=== PATIENT | male | born 1930 | race Caucasian/White ===

== ENCOUNTER 2017-12-12 14:47 | Inpatient (IN) | payer MEDICARE ==
--- NOTE | 2017-12-12 15:26 | RAD ---
PORTABLE AP CHEST: Date: 12/12/17 HISTORY: Patient transferred to [facility] secondary to CHF exacerbation. COMPARISON: None available. FINDINGS: The cardiac silhouette is enlarged. Pulmonary vasculature is within normal limits. There are mild chr onic lung changes seen. There is increased density overlying the right hilar region, which may be rel ated to similar position of structures, but overlying infiltrate or mass in this region cannot be ent irely excluded. No pleural effusion or pneumothorax is seen. Thoracic aorta is partially calcified an d tortuous. Degenerative changes are noted in the spine. IMPRESSION: 1. Increased density overlying the right hilar region, probably related to superimposition of struct ures and secondary to portable technique. However, a follow-up PA and lateral chest x-ray is recommen ded to exclude the possibility of overlying infiltrate or lesion in the right hilar region. 2. Mild chronic lung changes. POS: ALVINH
[2017-12-12] MEDS ORDERED: Furosemide 40 MG/4 ML VIAL ONE (15:51)
[2017-12-12 16:08] LABS: #Basophils 0.1 thou/uL (0.0-0.2); #Eosinphils 0.4 thou/uL (0.0-0.7); #Lymphocytes 1.5 thou/uL (1.20-3.40); #Monocytes 0.6 thou/uL (0.11-0.59); #Neutrophils 4.2 thou/uL (1.40-6.50); %Basophils 1.3 % (0.0-1.0); %Eosinophils 5.3 % (0.0-10.0); %Lymphocytes 22.4 % (21.0-51.0); %Monocytes 8.7 % (0.0-10.0); %Neutrophils 62.3 % (42.0-75.0); Hemoglobin 9.8 g/dL (14.0-18.0); Mean Corpuscular HGB CONC 33.9 g/dL (32.0-36.0); Mean Corpuscular Hemoglobin 34.5 pg (27.0-31.0); Mean Platelet Volume 8.6 fL (7.4-10.4); Platelet Count 208 thou/uL (130-400); RBC Distribution Width 14.3 % (11.5-14.5); Red Blood Cell (RBC) Count 2.84 mill/uL (4.70-6.10); White Blood Cell (WBC) Count 6.7 thou/uL (4.8-10.8)
[2017-12-12 16:12] LABS: ALT (SGPT) 13 U/L (8-55); AST (SGOT) 22 U/L (5-34); Albumin 3.5 g/dL (3.4-4.8); Alkaline Phosphatase 119 U/L (40-150); Anion Gap 13 mmol/L (10-20); BUN (Urea Nitrogen) 25 mg/dL (8.4-25.7); Bilirubin, Total 0.3 mg/dL (0.2-1.2); CK (CPK) 30 U/L (30-200); Calc. Creatinine Clearance 0 mL/min (70-130); Calcium 8.5 mg/dL (7.8-10.44); Carbon Dioxide 25 mmol/L (23-31); Chloride 96 mmol/L (98-107); Estimated GFR-MDRD 46; Globulin 3.2 g/dL (2.4-3.5); Glucose 98 mg/dL (83-110); Potassium 3.3 mmol/L (3.5-5.1); Protein, Total 6.7 g/dL (5.8-8.1); Sodium 131 mmol/L (136-145)
[2017-12-12 16:24] LABS: CKMB 1.6 ng/mL (0-6.6); Troponin I 0.102 ng/mL (< 0.028)
[2017-12-12 18:54] LABS: Troponin I 0.096 ng/mL (< 0.028)
[2017-12-12] MEDS ORDERED: Bisacodyl 5 MG TAB PO PRN (21:20)
[2017-12-12 21:29] LABS: Troponin I 0.102 ng/mL (< 0.028)
[2017-12-12] MEDS ORDERED: Furosemide 40 MG/4 ML VIAL SLOW IVP SCH ×2 (21:45→22:00)
[2017-12-12 21:47] VITALS: BMI 27.5
[2017-12-12] MEDS: Piperacillin/Tazobactam 2.25 GM in Sodium Chloride 0.9% 100 ML IVPB SCH (23:41)
--- NOTE | 2017-12-13 04:16 | HP ---
CHIEF COMPLAINT: Shortness of breath. HISTORY OF PRESENT ILLNESS: Patient is an 87-year-old male with a history of dementia, coronary julio ry disease, hypertension, and seizures who is a long-term resident who comes in to the hospital fo r worsening weight gain and shortness of breath. Patient currently is unable to provide history. Mo st of the history is from the chart. It seems that patient has been getting worse, increasing amount of confusion recently. Also, it is noted that patient broke his hip 11 weeks ago and was in the [facility] for surgery. Patient at that time also had some increased confusion and was given some diureti cs. According to the patient's family, patient has gained about 5 pounds. Patient currently denies any chest discomfort or shortness of breath, he is lying flat. PAST MEDICAL HISTORY: Dementia, hypertension, GERD, hypokalemia, seizure, UTI, vitamin D deficiency, high cholesterol, anemia, right femur fracture, insomnia, osteoporosis, and BPH. PAST SURGICAL HISTORY: He has had a right hip surgery, ablation. SOCIAL HISTORY: Patient is a former smoker; however, quit more than 10 years ago. Lives in a [facility] [place] facility. ALLERGIES: He is allergic to MELATONIN. MEDICATIONS: He takes Lasix 40 mg daily, aspirin 81 mg daily, potassium 10 mEq daily, calcium and vi tamin D 600 mg daily, atorvastatin 40 mg daily, mexiletine 200 mg q.8 hours for irregular heart rate, iron 325 daily, phenytoin 300 mg daily, carvedilol 3.125 twice a day, and vitamin D3 of 1000 units d aily. REVIEW OF SYSTEMS: All negative except for the ones mentioned above in the HPI. PHYSICAL EXAMINATION: VITAL SIGNS: Blood pressure 123/65, pulse of 74, respirations of 20, temperature of 98.3, oxygen sat uration 100% on room air. GENERAL: Patient is awake, alert, oriented to self only. HEENT: Normocephalic, atraumatic. NECK: No lymphadenopathy noted. Mucous membranes are not dry. CARDIOVASCULAR: S1, S2 present. He does have a murmur that is audible to his left sternal border an d left lower sternal border. LUNGS: Mild expiratory wheezing and mild crackles noted to the bilateral lower bases. ABDOMEN: Soft, nontender. Bowel sounds are present x2. No pain upon palpation. No hepatomegaly or splenomegaly noted. Lower extremity edema +2 noted to lower extremities. SKIN: He does have some cuts and bruises to his lower extremities. LABORATORY DATA: As the following: Urine is normal. WBCs of 6.7, hemoglobin of 9.8, hematocrit of 28.9, platelets of 208. Chemistry: Sodium of 131, potassium of 3.3, chloride of 96, BUN of 25, crea tinine of 1.47. His BNP was 2234. His troponin initially was 0.102 and then 0.096 and then 0.1002. Thyroid was normal at 1.0284. Chest x-ray indicates some hilar increased density around the hilar r egion, cannot rule out any infiltrate appears sinus. ASSESSMENT AND PLAN: Patient is a very pleasant 87-year-old male who presents to the hospital for vo lume overload. 1. Seizure exacerbation of unknown type, since there is no echo to indicate what type it was. We wi ll start patient on some IV diuretics, Lasix b.i.d. Also, we will start patient on some DuoNebs. He does have some mild wheezing, which could be possibly due to some volume overload. We will also kiran ck an echocardiogram. Patient currently denies any chest pain. He does have mild elevated troponins , which could be secondary to demand related. 2. Chronic kidney disease. Patient appears to be stable. 3. Elevated troponins. This could be secondary to demand related. Again, patient has no chest pain and also we will get an echocardiogram for further evaluation. 4. Hypokalemia. We will replace. 5. Seizure disorder. Patient normally takes phenytoin; however, the level is subtherapeutic. We wi ll continue his current dose. Continue to monitor. May need to call patient's family to get further history in regard to the patient's. Of note, we will start the patient on some Zosyn since x-ray in dicates possible infiltrates; however, patient has no leukocytosis. He did say that he did have a li ttle bit of a cough. Again, patient is not a very reliable historian and there is no family around h ere to ask further history about the patient. We will check a procalcitonin level and just cover him for the night. If the procalcitonin level is normal, may discontinue IV antibiotics. 6. Deep venous thrombosis prophylaxis. We will put the patient on subcutaneous heparin.
[2017-12-13 05:05] LABS: #Basophils 0.1 thou/uL (0.0-0.2); #Eosinphils 0.3 thou/uL (0.0-0.7); #Lymphocytes 1.8 thou/uL (1.20-3.40); #Monocytes 0.6 thou/uL (0.11-0.59); #Neutrophils 5.1 thou/uL (1.40-6.50); %Basophils 0.9 % (0.0-1.0); %Eosinophils 4.3 % (0.0-10.0); %Lymphocytes 22.9 % (21.0-51.0); %Neutrophils 64.9 % (42.0-75.0); Hemoglobin 9.6 g/dL (14.0-18.0); Mean Corpuscular HGB CONC 33.5 g/dL (32.0-36.0); Mean Corpuscular Hemoglobin 34.3 pg (27.0-31.0); Mean Platelet Volume 8.7 fL (7.4-10.4); Platelet Count 206 thou/uL (130-400); RBC Distribution Width 14.6 % (11.5-14.5); Red Blood Cell (RBC) Count 2.79 mill/uL (4.70-6.10); White Blood Cell (WBC) Count 7.8 thou/uL (4.8-10.8)
[2017-12-13 05:26] LABS: Anion Gap 12 mmol/L (10-20); BUN (Urea Nitrogen) 30 mg/dL (8.4-25.7); Calc. Creatinine Clearance 41 mL/min (70-130); Calcium 8.3 mg/dL (7.8-10.44); Carbon Dioxide 29 mmol/L (23-31); Chloride 95 mmol/L (98-107); Estimated GFR-MDRD 41; Glucose 99 mg/dL (83-110); Sodium 133 mmol/L (136-145)
[2017-12-13 05:30] LABS: Potassium 2.9 mmol/L (3.5-5.1)
[2017-12-13] MEDS: Piperacillin/Tazobactam 2.25 GM in Sodium Chloride 0.9% 100 ML IVPB SCH (05:37)
[2017-12-13] MEDS ORDERED: Potassium Chloride 20 MEQ TAB PO SCH (05:45)
[2017-12-13] MEDS: Potassium Chloride 10 MEQ in Premix Bag 1 BAG IVPB SCH ×2 (06:16→08:06)
[2017-12-13] MEDS: Acetaminophen 325 MG TAB PO PRN (07:52)
[2017-12-13] MEDS: Potassium Chloride 10 MEQ TAB PO SCH (07:52)
[2017-12-13] MEDS: Senokot S 8.6-50 MG TAB PO SCH ×2 (07:54→20:45)
[2017-12-13] MEDS: Ferrous Sulfate 325 MG TAB PO SCH (07:55)
[2017-12-13] MEDS: Carvedilol 3.125 MG TAB PO SCH ×2 (07:56→20:45)
[2017-12-13] MEDS ORDERED: Prevnar 13-Val Conj/PF 0.5 ML SYRINGE IM ONE (09:00)
[2017-12-13] MEDS ORDERED: Heparin 5,000 UNITS/ML VIAL SC SCH (09:00)
[2017-12-13] MEDS ORDERED: Mexiletine HCl 150 MG CAP PO SCH ×3 (09:00→14:00)
[2017-12-13] MEDS ORDERED: Aspirin 325 mg Enteric Coated Tablet PO SCH (09:00)
[2017-12-13] MEDS ORDERED: Cefdinir 300 MG CAP PO SCH ×2 (09:15)
[2017-12-13] MEDS: Aspirin 81 mg Enteric Coated Tablet PO SCH (09:26)
--- NOTE | 2017-12-13 10:36 | RAD ---
RIGHT WRIST 3 VIEWS: HISTORY: Fall. Right wrist injury. FINDINGS: Scaphoid waist and ulnar styloid are intact. Mild osteophytosis. No acute fracture, dislocation, or aggressive osseous erosions. IMPRESSION: Mild osteoarthritis right wrist. No acute osseous abnormalities are demonstrated. POS: ALVIN
--- NOTE | 2017-12-13 10:36 | RAD ---
RIGHT HAND 3 VIEWS: HISTORY: Fall. Right hand injury. FINDINGS: Joint spaces are preserved. Mild osteophytosis. No acute fracture, dislocation, or aggressive osseo us erosions. IMPRESSION: Mild osteoarthritis right hand. No acute osseous abnormalities are demonstrated. POS: ALVIN
[2017-12-13] MEDS ORDERED: Potassium Chloride 20 MEQ TAB PO PRN (11:47)
[2017-12-13] MEDS ORDERED: Magnesium 2 GM/NS 0.9% 100 ML 2 GM in Premix Bag 1 BAG IVPB SCH (12:00)
[2017-12-13] MEDS: Furosemide 40 MG/4 ML VIAL SLOW IVP SCH ×2 (14:29→19:46)
[2017-12-13] MEDS: MEXILETINE 200 MG CAP PO SCH ×2 (14:30→21:01)
[2017-12-13 16:25] LABS: Potassium 3.4 mmol/L (3.5-5.1)
[2017-12-13] MEDS: Doxycycline 100 MG CAP PO SCH (20:45)
[2017-12-13] MEDS: Atorvastatin Calcium 20 MG TAB PO SCH (20:45)
[2017-12-13] MEDS: Heparin 5,000 UNITS/ML VIAL SC SCH (20:46)
--- NOTE | 2017-12-13 23:13 | PDOC.PN ---
- Subjective Encounter Start Date: 12/13/17 Encounter Start Time: 08:30 Patient seen and examined for CHF flare. SOB improving. No new complaints. No overnight events. Rt wrist pain w/o swelling - Objective Resuscitation Status: Resuscitation Status DNR:Do Not Resuscitate MAR Reviewed: Yes Vital Signs & Weight: Vital Signs (12 hours) Temp Pulse Pulse Pulse Resp BP BP 12/13/17 22:14 12 12/13/17 19:30 98.5 F 81 20 12/13/17 18:48 87 74 107/59 L 114/56 L 12/13/17 18:41 82 16 12/13/17 16:30 98 F 95 14 12/13/17 14:06 76 16 12/13/17 12:00 98.5 F 75 14 BP Pulse Ox Pulse Ox 12/13/17 22:14 12/13/17 19:30 114/57 L 97 12/13/17 18:48 99 12/13/17 18:41 100 12/13/17 16:30 97/54 L 12/13/17 14:06 12/13/17 12:00 107/57 L 95 Weight Weight 191 lb 11.2 oz I&O: 12/12/17 12/13/17 12/14/17 06:59 06:59 06:59 Intake Total 460 1080 Balance 460 1080 Result Diagrams: 12/14/17 04:21 12/14/17 04:21 Additional Labs: Laboratory Tests 12/13/17 12/13/17 04:18 04:18 Potassium 2.9 L* Magnesium 1.6 Radiology Reviewed by me: Yes (CXR - ?infiltrate at R hilar region) EKG Reviewed by me: Yes (Tele SR with PVCs) Phys Exam - Physical Examination Constitutional: NAD Neck: no nodes, no JVD, supple Respiratory: no wheezing, no rhonchi Bibasilar rales, No accessory muscle use Cardiovascular: RRR, no rub no heaves/pulsations Gastrointestinal: soft, non-tender, no distention, positive bowel sounds Musculoskeletal: edema present Normal ROM Rt wrist Neurological: moves all 4 limbs No new focal findings Dx/Plan (1) Acute on chronic combined systolic and diastolic ACC/AHA stage C congestive heart failure Code(s): I50.43 - ACUTE ON CHRONIC COMBINED SYSTOLIC AND DIASTOLIC HRT FAIL Status: Acute (2) Hypokalemia Code(s): E87.6 - HYPOKALEMIA Status: Acute (3) HTN (hypertension) Code(s): I10 - ESSENTIAL (PRIMARY) HYPERTENSION Status: Acute (4) Acute bronchitis Code(s): J20.9 - ACUTE BRONCHITIS, UNSPECIFIED Status: Acute - Plan continue antibiotics, PT/OT, DVT proph w/heparin, DVT proph w/SCDs Add Doxycline, Rt wrist XR due to h/o fall -: AM labs, Recheck Potassium later today -: Replace Potassium and Mg -: Add Fluid restriction, Echo pending Review of Systems - Review of Systems Respiratory: negative: Cough, Dry, Shortness of Breath, Hemoptysis, SOB with Excertion, Pleuritic Pain, Sputum, Wheezing Cardiovascular: negative: chest pain, palpitations, orthopnea, paroxysmal nocturnal dyspnea, edema, light headedness, other - Medications/Allergies Allergies/Adverse Reactions: Allergies Allergy/AdvReac Type Severity Reaction Status Date / Time melatonin Allergy Verified 12/12/17 21:40 Medications: Current Medications Acetaminophen (Tylenol) 650 mg PO Q4H PRN PRN Reason: Headache/Fever or Pain Last Admin: 12/13/17 07:52 Dose: 650 mg Albuterol/Ipratropium (Duoneb) 3 ml NEB [id number] [facility] Last Admin: 12/13/17 22:14 Dose: 3 ml Aspirin (Ecotrin) 81 mg PO DAILY [facility] Last Admin: 12/13/17 09:26 Dose: 81 mg Atorvastatin Calcium (Lipitor) 20 mg PO HS [facility] Last Admin: 12/13/17 20:45 Dose: 20 mg Bisacodyl (Dulcolax) 10 mg PO DAILYPRN PRN PRN Reason: Constipation Carvedilol (Coreg) 3.125 mg PO BID [facility] Last Admin: 12/13/17 20:45 Dose: 3.125 mg Doxycycline Hyclate (Vibramycin) 100 mg PO BID [facility] Last Admin: 12/13/17 20:45 Dose: 100 mg Ferrous Sulfate (Feosol) 325 mg PO QAM-WM [facility] Last Admin: 12/13/17 07:55 Dose: 325 mg Furosemide (Lasix) 40 mg SLOW IVP 0600,1400 [facility] Last Admin: 12/13/17 19:46 Dose: Not Given Heparin Sodium (Porcine) (Heparin) 5,000 units SC BID [facility] Last Admin: 12/13/17 20:46 Dose: 5,000 units Mexiletine 200 Mg (Cap) 0 each PO Q8HR [facility] Last Admin: 12/13/17 21:01 Dose: 1 each Phenytoin Sodium (Dilantin Er) 300 mg PO DAILY [facility] Last Admin: 12/13/17 07:53 Dose: 300 mg Potassium Chloride (Klor-Con 10) 10 meq PO DAILY [facility] Last Admin: 12/13/17 07:52 Dose: 10 meq Potassium Chloride (K-Dur) 20 meq PO DAILYPRN PRN PRN Reason: Potassium < 3.5 Last Admin: 12/13/17 17:36 Dose: 20 meq Senna/Docusate Sodium (Senokot S) 1 tab PO BID [facility] Last Admin: 12/13/17 20:45 Dose: 1 tab Sodium Chloride (Flush - Normal Saline) 10 ml IVF PRN PRN PRN Reason: Saline Flush Last Admin: 12/13/17 14:30 Dose: 10 ml
[2017-12-14 04:57] LABS: #Basophils 0.1 thou/uL (0.0-0.2); #Eosinphils 0.4 thou/uL (0.0-0.7); #Lymphocytes 1.7 thou/uL (1.20-3.40); #Monocytes 0.4 thou/uL (0.11-0.59); #Neutrophils 3.6 thou/uL (1.40-6.50); %Lymphocytes 27.4 % (21.0-51.0); %Neutrophils 57.6 % (42.0-75.0); Hemoglobin 9.8 g/dL (14.0-18.0); Mean Corpuscular HGB CONC 33.4 g/dL (32.0-36.0); Mean Corpuscular Hemoglobin 34.3 pg (27.0-31.0); Mean Platelet Volume 9.1 fL (7.4-10.4); Platelet Count 212 thou/uL (130-400); RBC Distribution Width 14.5 % (11.5-14.5); Red Blood Cell (RBC) Count 2.84 mill/uL (4.70-6.10); White Blood Cell (WBC) Count 6.2 thou/uL (4.8-10.8)
[2017-12-14 05:25] LABS: Anion Gap 12 mmol/L (10-20); BUN (Urea Nitrogen) 31 mg/dL (8.4-25.7); Calc. Creatinine Clearance 45 mL/min (70-130); Calcium 8.6 mg/dL (7.8-10.44); Carbon Dioxide 27 mmol/L (23-31); Chloride 100 mmol/L (98-107); Estimated GFR-MDRD 46; Glucose 98 mg/dL (83-110); Phosphorus 3.4 mg/dL (2.3-4.7); Potassium 3.6 mmol/L (3.5-5.1); Sodium 135 mmol/L (136-145)
[2017-12-14] MEDS: Furosemide 40 MG/4 ML VIAL SLOW IVP SCH ×2 (06:10→15:11)
[2017-12-14] MEDS: MEXILETINE 200 MG CAP PO SCH ×3 (06:40→20:45)
[2017-12-14] MEDS: Doxycycline 100 MG CAP PO SCH ×2 (09:43→20:44)
[2017-12-14] MEDS: Senokot S 8.6-50 MG TAB PO SCH ×3 (09:43→23:02)
[2017-12-14] MEDS: Ferrous Sulfate 325 MG TAB PO SCH (09:48)
[2017-12-14] MEDS: Potassium Chloride 10 MEQ TAB PO SCH (09:48)
[2017-12-14] MEDS: Carvedilol 3.125 MG TAB PO SCH ×2 (09:48→20:46)
[2017-12-14] MEDS: Aspirin 81 mg Enteric Coated Tablet PO SCH (09:48)
[2017-12-14] MEDS: Heparin 5,000 UNITS/ML VIAL SC SCH ×2 (09:51→20:46)
--- NOTE | 2017-12-14 13:33 | PDOC.PN ---
- Subjective Encounter Start Date: 12/14/17 Encounter Start Time: 11:30 Patient seen and examined for CHF exacerbation. No new complaints. No overnight events - Objective Resuscitation Status: Resuscitation Status DNR:Do Not Resuscitate MAR Reviewed: Yes Vital Signs & Weight: Vital Signs (12 hours) Temp Pulse Pulse Pulse Resp BP BP 12/14/17 12:00 98.1 F 91 14 12/14/17 10:57 86 12 12/14/17 09:16 97 106 H 115/68 134/63 12/14/17 07:40 98.5 F 88 16 12/14/17 06:16 75 12 12/14/17 06:00 98.5 F 88 12 12/14/17 04:00 97.9 F 84 18 12/14/17 02:15 12 BP Pulse Ox 12/14/17 12:00 91/50 L 12/14/17 10:57 12/14/17 09:16 12/14/17 07:40 104/59 L 94 L 12/14/17 06:16 12/14/17 06:00 94 L 12/14/17 04:00 130/56 L 12/14/17 02:15 Weight Weight 195 lb 8 oz I&O: 12/13/17 12/14/17 12/15/17 06:59 06:59 06:59 Intake Total 460 1080 Balance 460 1080 Result Diagrams: 12/14/17 04:21 12/14/17 04:21 EKG Reviewed by me: Yes (Tele SR) Phys Exam - Physical Examination Constitutional: NAD Respiratory: no wheezing, no rhonchi Bibasilar rales Cardiovascular: RRR, no rub Gastrointestinal: soft, non-tender, positive bowel sounds Dx/Plan (1) Acute on chronic combined systolic and diastolic ACC/AHA stage C congestive heart failure Code(s): I50.43 - ACUTE ON CHRONIC COMBINED SYSTOLIC AND DIASTOLIC HRT FAIL Status: Acute Comment: on IV diuretics (2) Hypokalemia Code(s): E87.6 - HYPOKALEMIA Status: Acute Comment: on replacement (3) Acute bronchitis Code(s): J20.9 - ACUTE BRONCHITIS, UNSPECIFIED Status: Acute Comment: on Doxycycline (4) HTN (hypertension) Code(s): I10 - ESSENTIAL (PRIMARY) HYPERTENSION - Plan continue antibiotics, PT/OT, DVT proph w/SCDs Cont diuresis, Increase Potassium dose -: AM labs -: Cont current meds as below Review of Systems - Review of Systems Respiratory: Cough. negative: Dry, Shortness of Breath, Hemoptysis, SOB with Excertion, Pleuritic Pain, Sputum, Wheezing Cardiovascular: negative: chest pain, palpitations, orthopnea, paroxysmal nocturnal dyspnea, edema, light headedness, other - Medications/Allergies Allergies/Adverse Reactions: Allergies Allergy/AdvReac Type Severity Reaction Status Date / Time melatonin Allergy Verified 12/12/17 21:40 Medications: Current Medications Acetaminophen (Tylenol) 650 mg PO Q4H PRN PRN Reason: Headache/Fever or Pain Last Admin: 12/13/17 07:52 Dose: 650 mg Albuterol/Ipratropium (Duoneb) 3 ml NEB [id number] [facility] Last Admin: 12/14/17 10:57 Dose: 3 ml Aspirin (Ecotrin) 81 mg PO DAILY [facility] Last Admin: 12/14/17 09:48 Dose: 81 mg Atorvastatin Calcium (Lipitor) 20 mg PO HS [facility] Last Admin: 12/13/17 20:45 Dose: 20 mg Bisacodyl (Dulcolax) 10 mg PO DAILYPRN PRN PRN Reason: Constipation Carvedilol (Coreg) 3.125 mg PO BID [facility] Last Admin: 12/14/17 09:48 Dose: 3.125 mg Doxycycline Hyclate (Vibramycin) 100 mg PO BID [facility] Last Admin: 12/14/17 09:43 Dose: 100 mg Ferrous Sulfate (Feosol) 325 mg PO QAM-WM [facility] Last Admin: 12/14/17 09:48 Dose: 325 mg Furosemide (Lasix) 40 mg SLOW IVP 0600,1400 [facility] Last Admin: 12/14/17 06:10 Dose: 40 mg Heparin Sodium (Porcine) (Heparin) 5,000 units SC BID [facility] Last Admin: 12/14/17 09:51 Dose: 5,000 units Mexiletine 200 Mg (Cap) 0 each PO Q8HR [facility] Last Admin: 12/14/17 06:40 Dose: 1 each Phenytoin Sodium (Dilantin Er) 300 mg PO DAILY [facility] Last Admin: 12/14/17 09:47 Dose: 300 mg Potassium Chloride (K-Dur) 20 meq PO DAILYPRN PRN PRN Reason: Potassium < 3.5 Last Admin: 12/13/17 17:36 Dose: 20 meq Potassium Chloride (K-Dur) 20 meq PO BID-WM [facility] Senna/Docusate Sodium (Senokot S) 1 tab PO BID [facility] Last Admin: 12/14/17 09:43 Dose: 1 tab Sodium Chloride (Flush - Normal Saline) 10 ml IVF PRN PRN PRN Reason: Saline Flush Last Admin: 12/14/17 09:52 Dose: 10 ml
[2017-12-14] MEDS: Potassium Chloride 20 MEQ TAB PO SCH (16:57)
[2017-12-14] MEDS: Atorvastatin Calcium 20 MG TAB PO SCH (20:44)
[2017-12-15] MEDS: MEXILETINE 200 MG CAP PO SCH ×3 (05:03→22:43)
[2017-12-15] MEDS: Furosemide 40 MG/4 ML VIAL SLOW IVP SCH ×2 (05:03→16:01)
[2017-12-15] MEDS: Senokot S 8.6-50 MG TAB PO SCH ×4 (09:26→20:22)
[2017-12-15] MEDS: Potassium Chloride 20 MEQ TAB PO SCH ×2 (09:26→16:01)
[2017-12-15] MEDS: Aspirin 81 mg Enteric Coated Tablet PO SCH (09:26)
[2017-12-15] MEDS: Doxycycline 100 MG CAP PO SCH ×2 (09:26→20:27)
[2017-12-15] MEDS: Carvedilol 3.125 MG TAB PO SCH ×2 (09:26→20:27)
[2017-12-15] MEDS: Heparin 5,000 UNITS/ML VIAL SC SCH ×2 (09:27→20:28)
[2017-12-15] MEDS: Polyethylene Glycol 3350 17 GM Packet PO SCH (09:27)
[2017-12-15] MEDS: Ferrous Sulfate 325 MG TAB PO SCH (09:27)
--- NOTE | 2017-12-15 19:21 | CON ---
DATE OF CONSULTATION: 12/15/2017 HISTORY OF PRESENT ILLNESS: He is a pleasant 87-year-old white male with history of dementia. He apparently has had dementia for the last 20 years and is currently a [facility] resident. He fractured his hip 11 weeks ago and underwent surgery at [facility] in [place] according to the patient. Since that time in discussing with him, he has probably been bedridden. He has transferred from [facility] due to increased weight gain. Mr. Suarez states that his legs at times will become very swollen and he does have shortness of breath. He denies any chest discomfort to me. PAST MEDICAL HISTORY: Remarkable for hypertension, GERD, seizure disorder, vitamin D deficiency, hypercholesterolemia, anemia, and right femur fracture. OPERATIONS: Right hip surgery. SOCIAL HISTORY: He smoked, but stopped 10 years ago. He does not drink. He lives in a [place] [facility]. FAMILY HISTORY: Unknown. MEDICATIONS: Aspirin 325 daily, atorvastatin 20 mg at bedtime, carvedilol 3.125 b.i.d., vitamin D3 of 2000 units daily, ferrous sulfate 325 daily, furosemide 40 q.a.m., mexiletine 200 q.8 hours, phenytoin 300 mg daily, potassium 10 mEq daily. ALLERGIES: MELATONIN. REVIEW OF SYSTEMS: A 12-point review of systems is unobtainable with the patient's dementia. PHYSICAL EXAMINATION: VITAL SIGNS: 145/88, pulse 84. HEENT: PERRL. NECK: Supple. CHEST: Clear. CARDIAC: S1, S2 normal, without any S3 or S4. There is a 2/6 systolic ejection murmur heard in the aortic area radiating to the carotids. ABDOMEN: Normal bowel sounds, without tenderness, organomegaly or masses. EXTREMITIES: Revealed no clubbing, cyanosis or edema. NEUROLOGIC: Patient mildly disoriented at times. Moves all extremities. SKIN: Warm and dry. LABORATORY DATA: EKG revealed normal sinus rhythm with possible left ventricular hypertrophy. Echocardiogram revealed ejection fraction of 20%-25% with left ventricular enlargement, evidence for diastolic dysfunction, severe aortic stenosis with aortic valve area 0.69 cm2. Mild mitral regurgitation, mild tricuspid regurgitation. Hemoglobin 9.8, hematocrit 29.2, white count 6200 , platelets 212,000. Sodium 135, potassium 3.6, chloride 100, carbon dioxide 27 , BUN 31, creatinine 1.47. IMPRESSION: 1. Acute on chronic systolic and diastolic heart failure. 2. Severe aortic stenosis. 3. Severe left ventricular dysfunction. 4. Hypercholesterolemia. 5. Dementia. 6. History of seizure disorder. 7. Chronic kidney disease. PLAN: Patient will continue to be gently diuresed. With his dementia, essentially bedridden status since his hip repair 11 weeks ago and DNR status, I do not feel that he is a candidate for any type of aggressive therapy of his aortic stenosis. If he is admitted repeatedly with heart failure, consideration should be given to hospice. SULMA
[2017-12-15] MEDS: Atorvastatin Calcium 20 MG TAB PO SCH (20:27)
--- NOTE | 2017-12-15 21:43 | PDOC.PN ---
- Subjective Encounter Start Date: 12/15/17 Encounter Start Time: 10:00 Patient seen and examined for CHF exacerbation. No new complaints. No overnight events - Objective Resuscitation Status: Resuscitation Status DNR:Do Not Resuscitate MAR Reviewed: Yes Vital Signs & Weight: Vital Signs (12 hours) Temp Pulse Pulse Pulse Resp BP BP 12/15/17 20:00 98.1 F 88 20 12/15/17 18:43 90 12 12/15/17 16:11 97.9 F 78 16 12/15/17 14:20 84 16 12/15/17 13:29 80 78 107/54 L 128/54 L 12/15/17 12:23 98.2 F 84 18 12/15/17 11:25 77 16 BP Pulse Ox 12/15/17 20:00 108/57 L 95 12/15/17 18:43 97 12/15/17 16:11 137/76 92 L 12/15/17 14:20 12/15/17 13:29 12/15/17 12:23 145/88 H 94 L 12/15/17 11:25 Weight Weight 195 lb 12.8 oz I&O: 12/14/17 12/15/17 12/16/17 06:59 06:59 06:59 Intake Total 1080 730 Balance 1080 730 Result Diagrams: 12/14/17 04:21 12/14/17 04:21 EKG Reviewed by me: Yes (Tele SR) Phys Exam - Physical Examination Constitutional: NAD Respiratory: no wheezing, no rhonchi Bibasilar rales Cardiovascular: RRR, no rub Gastrointestinal: soft, non-tender, positive bowel sounds Dx/Plan (1) Acute on chronic combined systolic and diastolic ACC/AHA stage C congestive heart failure Code(s): I50.43 - ACUTE ON CHRONIC COMBINED SYSTOLIC AND DIASTOLIC HRT FAIL Status: Acute Comment: on IV diuretics (2) Hypokalemia Code(s): E87.6 - HYPOKALEMIA Status: Acute Comment: on replacement (3) Acute bronchitis Code(s): J20.9 - ACUTE BRONCHITIS, UNSPECIFIED Status: Acute Comment: on Doxycycline (4) HTN (hypertension) Code(s): I10 - ESSENTIAL (PRIMARY) HYPERTENSION (5) Aortic stenosis Code(s): I35.0 - NONRHEUMATIC AORTIC (VALVE) STENOSIS Status: Chronic - Plan continue antibiotics, PT/OT, DVT proph w/heparin, DVT proph w/SCDs Cont diuretics -: AM labs -: Await Cardio input -: Cont other meds as below Review of Systems - Review of Systems Cardiovascular: negative: chest pain, palpitations, orthopnea, paroxysmal nocturnal dyspnea, edema, light headedness, other Gastrointestinal: negative: Nausea, Vomiting, Abdominal Pain, Diarrhea, Constipation, Melena, Hematochezia, Other - Medications/Allergies Allergies/Adverse Reactions: Allergies Allergy/AdvReac Type Severity Reaction Status Date / Time melatonin Allergy Verified 12/12/17 21:40 Medications: Current Medications Acetaminophen (Tylenol) 650 mg PO Q4H PRN PRN Reason: Headache/Fever or Pain Last Admin: 12/13/17 07:52 Dose: 650 mg Albuterol/Ipratropium (Duoneb) 3 ml NEB [id number] [facility] Last Admin: 12/15/17 18:43 Dose: 3 ml Aspirin (Ecotrin) 81 mg PO DAILY [facility] Last Admin: 12/15/17 09:26 Dose: 81 mg Atorvastatin Calcium (Lipitor) 20 mg PO HS [facility] Last Admin: 12/15/17 20:27 Dose: 20 mg Bisacodyl (Dulcolax) 10 mg PO DAILYPRN PRN PRN Reason: Constipation Carvedilol (Coreg) 3.125 mg PO BID [facility] Last Admin: 12/15/17 20:27 Dose: 3.125 mg Doxycycline Hyclate (Vibramycin) 100 mg PO BID [facility] Last Admin: 12/15/17 20:27 Dose: 100 mg Ferrous Sulfate (Feosol) 325 mg PO QAM-WM [facility] Last Admin: 12/15/17 09:27 Dose: 325 mg Furosemide (Lasix) 40 mg SLOW IVP 0600,1400 [facility] Last Admin: 12/15/17 16:01 Dose: 40 mg Heparin Sodium (Porcine) (Heparin) 5,000 units SC BID [facility] Last Admin: 12/15/17 20:28 Dose: 5,000 units Mexiletine 200 Mg (Cap) 0 each PO Q8HR [facility] Last Admin: 12/15/17 16:01 Dose: 1 each Phenytoin Sodium (Dilantin Er) 300 mg PO DAILY [facility] Last Admin: 12/15/17 09:26 Dose: 300 mg Polyethylene Glycol (Miralax) 17 gm PO DAILY [facility] Last Admin: 12/15/17 09:27 Dose: 17 gm Potassium Chloride (K-Dur) 20 meq PO DAILYPRN PRN PRN Reason: Potassium < 3.5 Last Admin: 12/13/17 17:36 Dose: 20 meq Potassium Chloride (K-Dur) 20 meq PO BID-WM [facility] Last Admin: 12/15/17 16:01 Dose: 20 meq Senna/Docusate Sodium (Senokot S) 1 tab PO BID [facility] Last Admin: 12/15/17 20:22 Dose: Not Given Senna/Docusate Sodium (Senokot S) 1 tab PO BID [facility] Last Admin: 12/15/17 20:22 Dose: Not Given Sodium Chloride (Flush - Normal Saline) 10 ml IVF PRN PRN PRN Reason: Saline Flush Last Admin: 12/14/17 09:52 Dose: 10 ml
[2017-12-16] MEDS: Furosemide 40 MG/4 ML VIAL SLOW IVP SCH ×2 (05:32→15:39)
[2017-12-16] MEDS: MEXILETINE 200 MG CAP PO SCH ×3 (05:33→20:54)
[2017-12-16 05:42] LABS: Albumin 3.5 g/dL (3.4-4.8); Anion Gap 15 mmol/L (10-20); BUN (Urea Nitrogen) 48 mg/dL (8.4-25.7); Calc. Creatinine Clearance 42 mL/min (70-130); Calcium 8.8 mg/dL (7.8-10.44); Carbon Dioxide 25 mmol/L (23-31); Chloride 101 mmol/L (98-107); Estimated GFR-MDRD 41; Glucose 99 mg/dL (83-110); Magnesium 1.8 mg/dL (1.6-2.6); Phosphorus 4.2 mg/dL (2.3-4.7); Potassium 3.6 mmol/L (3.5-5.1); Sodium 137 mmol/L (136-145)
[2017-12-16] MEDS: Potassium Chloride 20 MEQ TAB PO SCH ×2 (08:08→16:37)
[2017-12-16] MEDS: Ferrous Sulfate 325 MG TAB PO SCH (08:08)
[2017-12-16] MEDS: Doxycycline 100 MG CAP PO SCH ×2 (08:08→21:01)
[2017-12-16] MEDS: Polyethylene Glycol 3350 17 GM Packet PO SCH (08:09)
[2017-12-16] MEDS: Senokot S 8.6-50 MG TAB PO SCH ×4 (08:09→20:54)
[2017-12-16] MEDS: Carvedilol 3.125 MG TAB PO SCH ×2 (08:09→20:53)
[2017-12-16] MEDS: Aspirin 81 mg Enteric Coated Tablet PO SCH (08:09)
[2017-12-16] MEDS: Heparin 5,000 UNITS/ML VIAL SC SCH ×2 (08:10→20:53)
--- NOTE | 2017-12-16 09:14 | PQF ---
CLINICAL DOCUMENTATION IMPROVEMENT CLARIFICATION FORM: ICD-10 Updated PLEASE DO AN ADDENDUM TO THE PROGRESS NOTE WITH ANY DOCUMENTATION UPDATES OR ADDITIONS AND CARRY THROUGH TO DC SUMMARY. THANK YOU. DATE: 12/16 ATTN: DR. LUH YAO Please exercise your independent, professional judgment in responding to the clarification form. Clinical indicators are provided on the bottom of this form for your review Please check appropriate box(s): ELEVATED TROPONINS [ ] D/T Demand Ischemia [ ] Not D/T Demand Ischemia [ ] Associated Diagnosis: [ ] Other diagnosis [ ] Unable to determine For continuity of documentation, please document condition throughout progress notes and discharge summary. Thank You. CLINICAL INDICATORS - SIGNS / SYMPTOMS/ LABS are present in the medical record: TROPONIN I: 0.102, 0.096, 0.102 (ADMIT, 12/12) PHYSICIAN H&P DOCUMENTATION 12/12: ASSESSMENT: 3) ELEVATED TROPONINS. THIS COULD BE 2/2 DEMAND RELATED RISK FACTOR: ACUTE ON CHRONIC COMBINED CHF TREATMENT: SERIAL ENZYMES CARDIOLOGY CONSULT THANK YOU! Giselle (This form is maintained as a part of the permanent medical record) 2014 [employer], [employer]. All Rights Reserved Giselle Maldonado RN, BSN [email or web address] Office: [phone] [facility]
--- NOTE | 2017-12-16 09:26 | PQF ---
CLINICAL DOCUMENTATION IMPROVEMENT CLARIFICATION FORM: ICD-10 Updated PLEASE DO AN ADDENDUM TO THE PROGRESS NOTE WITH ANY DOCUMENTATION UPDATES OR ADDITIONS AND CARRY THROUGH TO DC SUMMARY. THANK YOU. DATE: 12/16 ATTN: DR. LUH YAO Please exercise your independent, professional judgment in responding to the clarification form. Clinical indicators are provided on the bottom of this form for your review Please check appropriate box(s): [ ] Acute on Chronic Renal Failure please specify Stage of CKD (see below) [ ] CKD without ARF/TYLOR please specify Stage of CKD [ ] Other diagnosis [ ] Unable to determine National Kidney Foundation Guidelines for CKD Staging Stage I Kidney damage with normal or increased GFR GFR > 90 Stage II Kidney damage with mildly decreased GFR GFR 60-89 Stage III Kidney damage with moderately decreased GFR GFR 30-59 Stage IV Kidney damage with severely decreased GFR GFR 16-29 Stage V Kidney failure GFR<15 ESRD End Stage Renal Disease On dialysis For continuity of documentation, please document condition throughout progress notes and discharge summary. Thank You. CLINICAL INDICATORS - SIGNS / SYMPTOMS / LABS BUN: 25 CR: 1.47 GFR: 46 (ON ADMIT, 12/12) 30 1.61 41 (12/13) 31 1.47 46 (12/14) 48 1.60 41 (12/16) PHYSICIAN H&P DOCUMENTATION 12/12: ASSESSMENT: 2) CKD. PT APPEARS TO BE STABLE CARDIOLOGY CONSULT 12/15: ASSESSMENT: 7) CKD RISK FACTORS: HTN HOME DIURETIC USE (PO LASIX) HYPOKALEMIA TREATMENT: SERIAL LABS POTASSIUM REPLACEMENT THANK YOU! Giselle (This form is maintained as a part of the permanent medical record) 2014 [employer]. All Rights Reserved Giselle Maldonado RN, BSN [email or web address] Office: [phone] [facility]
[2017-12-16] MEDS: Acetaminophen 325 MG TAB PO PRN (15:24)
--- NOTE | 2017-12-16 18:41 | PDOC.PN ---
- Subjective Encounter Start Date: 12/16/17 Encounter Start Time: 13:00 Patient seen and examined for CHF. No new complaints. No overnight events - Objective Resuscitation Status: Resuscitation Status DNR:Do Not Resuscitate MAR Reviewed: Yes Vital Signs & Weight: Vital Signs (12 hours) Temp Pulse Resp BP Pulse Ox 12/16/17 16:00 97.1 F L 78 18 120/64 95 12/16/17 15:16 89 18 12/16/17 12:00 98.1 F 87 20 125/64 95 12/16/17 10:23 94 20 12/16/17 08:00 97.9 F 96 20 122/67 94 L 12/16/17 07:08 96 12/16/17 07:06 83 20 96 Weight Weight 195 lb 12.8 oz I&O: 12/15/17 12/16/17 12/17/17 06:59 06:59 06:59 Intake Total 730 650 Balance 730 650 Result Diagrams: 12/14/17 04:21 12/16/17 04:27 EKG Reviewed by me: Yes (Tele SR) Phys Exam - Physical Examination Constitutional: NAD Respiratory: no wheezing, no rhonchi Cardiovascular: RRR, no rub Gastrointestinal: soft, non-tender, positive bowel sounds Musculoskeletal: no edema Neurological: moves all 4 limbs Dx/Plan (1) Acute on chronic combined systolic and diastolic ACC/AHA stage C congestive heart failure Code(s): I50.43 - ACUTE ON CHRONIC COMBINED SYSTOLIC AND DIASTOLIC HRT FAIL Status: Acute Comment: on IV diuretics (2) Hypokalemia Code(s): E87.6 - HYPOKALEMIA Status: Acute (3) Acute bronchitis Code(s): J20.9 - ACUTE BRONCHITIS, UNSPECIFIED Status: Acute Comment: on Doxycycline (4) HTN (hypertension) Code(s): I10 - ESSENTIAL (PRIMARY) HYPERTENSION (5) Aortic stenosis Code(s): I35.0 - NONRHEUMATIC AORTIC (VALVE) STENOSIS Status: Chronic (6) CKD (chronic kidney disease) stage 3, GFR 30-59 ml/min Code(s): N18.3 - CHRONIC KIDNEY DISEASE, STAGE 3 (MODERATE) Status: Chronic (7) Elevated troponin Code(s): R74.8 - ABNORMAL LEVELS OF OTHER SERUM ENZYMES Status: Acute Comment: due to demand ischemia - Plan continue antibiotics, PT/OT, DVT proph w/heparin, DVT proph w/SCDs Cont diuretics/ASA/Coreg -: Cardiology following -: AM labs -: Cont fluid restriction -: Cont to monitor Review of Systems - Review of Systems Respiratory: negative: Cough, Dry, Shortness of Breath, Hemoptysis, SOB with Excertion, Pleuritic Pain, Sputum, Wheezing Cardiovascular: negative: chest pain, palpitations, orthopnea, paroxysmal nocturnal dyspnea, edema, light headedness, other - Medications/Allergies Allergies/Adverse Reactions: Allergies Allergy/AdvReac Type Severity Reaction Status Date / Time melatonin Allergy Verified 12/12/17 21:40 Medications: Current Medications Acetaminophen (Tylenol) 650 mg PO Q4H PRN PRN Reason: Headache/Fever or Pain Last Admin: 12/16/17 15:24 Dose: 650 mg Albuterol/Ipratropium (Duoneb) 3 ml NEB [id number] [facility] Last Admin: 12/16/17 15:16 Dose: 3 ml Aspirin (Ecotrin) 81 mg PO DAILY [facility] Last Admin: 12/16/17 08:09 Dose: 81 mg Atorvastatin Calcium (Lipitor) 20 mg PO HS [facility] Last Admin: 12/15/17 20:27 Dose: 20 mg Bisacodyl (Dulcolax) 10 mg PO DAILYPRN PRN PRN Reason: Constipation Carvedilol (Coreg) 3.125 mg PO BID [facility] Last Admin: 12/16/17 08:09 Dose: 3.125 mg Doxycycline Hyclate (Vibramycin) 100 mg PO BID [facility] Last Admin: 12/16/17 08:08 Dose: 100 mg Ferrous Sulfate (Feosol) 325 mg PO QAM-WM [facility] Last Admin: 12/16/17 08:08 Dose: 325 mg Furosemide (Lasix) 40 mg PO DAILY-AC [facility] Heparin Sodium (Porcine) (Heparin) 5,000 units SC BID [facility] Last Admin: 12/16/17 08:10 Dose: 5,000 units Mexiletine 200 Mg (Cap) 0 each PO Q8HR [facility] Last Admin: 12/16/17 14:46 Dose: 1 each Phenytoin Sodium (Dilantin Er) 300 mg PO DAILY [facility] Last Admin: 12/16/17 08:08 Dose: 300 mg Polyethylene Glycol (Miralax) 17 gm PO DAILY [facility] Last Admin: 12/16/17 08:09 Dose: Not Given Potassium Chloride (K-Dur) 20 meq PO DAILYPRN PRN PRN Reason: Potassium < 3.5 Last Admin: 12/13/17 17:36 Dose: 20 meq Potassium Chloride (K-Dur) 20 meq PO BID-[facility] Last Admin: 12/16/17 16:37 Dose: 20 meq Senna/Docusate Sodium (Senokot S) 1 tab PO BID [facility] Last Admin: 12/16/17 08:09 Dose: Not Given Senna/Docusate Sodium (Senokot S) 1 tab PO BID [facility] Last Admin: 12/16/17 08:09 Dose: Not Given Sodium Chloride (Flush - Normal Saline) 10 ml IVF PRN PRN PRN Reason: Saline Flush Last Admin: 12/14/17 09:52 Dose: 10 ml
[2017-12-16] MEDS: Atorvastatin Calcium 20 MG TAB PO SCH (20:53)
[2017-12-17] MEDS: MEXILETINE 200 MG CAP PO SCH ×3 (05:20→22:18)
[2017-12-17 05:47] LABS: #Basophils 0.1 thou/uL (0.0-0.2); #Eosinphils 0.5 thou/uL (0.0-0.7); #Lymphocytes 2.1 thou/uL (1.20-3.40); #Monocytes 0.5 thou/uL (0.11-0.59); #Neutrophils 3.9 thou/uL (1.40-6.50); %Basophils 1.6 % (0.0-1.0); %Eosinophils 7.5 % (0.0-10.0); %Lymphocytes 29.9 % (21.0-51.0); %Monocytes 6.3 % (0.0-10.0); %Neutrophils 54.7 % (42.0-75.0); Hemoglobin 10.7 g/dL (14.0-18.0); Mean Corpuscular HGB CONC 33.2 g/dL (32.0-36.0); Mean Corpuscular Hemoglobin 34.1 pg (27.0-31.0); Platelet Count 281 thou/uL (130-400); RBC Distribution Width 14.7 % (11.5-14.5); Red Blood Cell (RBC) Count 3.13 mill/uL (4.70-6.10); White Blood Cell (WBC) Count 7.1 thou/uL (4.8-10.8)
[2017-12-17 05:54] LABS: Albumin 3.7 g/dL (3.4-4.8); Anion Gap 15 mmol/L (10-20); BUN (Urea Nitrogen) 54 mg/dL (8.4-25.7); BUN/Creatinine Ratio 34.18; Calc. Creatinine Clearance 43 mL/min (70-130); Calcium 9.1 mg/dL (7.8-10.44); Carbon Dioxide 23 mmol/L (23-31); Chloride 102 mmol/L (98-107); Estimated GFR-MDRD 42; Glucose 102 mg/dL (83-110); Phosphorus 4.3 mg/dL (2.3-4.7); Potassium 3.8 mmol/L (3.5-5.1); Sodium 136 mmol/L (136-145)
[2017-12-17] MEDS: Furosemide 40 MG TAB PO SCH (07:08)
[2017-12-17] MEDS: Doxycycline 100 MG CAP PO SCH ×2 (09:18→22:15)
[2017-12-17] MEDS: Carvedilol 3.125 MG TAB PO SCH ×2 (09:18→22:15)
[2017-12-17] MEDS: Potassium Chloride 20 MEQ TAB PO SCH ×2 (09:18→16:30)
[2017-12-17] MEDS: Ferrous Sulfate 325 MG TAB PO SCH (09:18)
[2017-12-17] MEDS: Aspirin 81 mg Enteric Coated Tablet PO SCH (09:18)
[2017-12-17] MEDS: Polyethylene Glycol 3350 17 GM Packet PO SCH (09:19)
[2017-12-17] MEDS: Heparin 5,000 UNITS/ML VIAL SC SCH ×2 (09:19→22:16)
[2017-12-17] MEDS: Senokot S 8.6-50 MG TAB PO SCH ×4 (09:20→22:16)
--- NOTE | 2017-12-17 16:29 | PDOC.PN ---
- Subjective Encounter Start Date: 12/17/17 Encounter Start Time: 12:00 Patient is seen today, alert but disoriented. no family around today. Pt is poor prgnosis and recommeded Hospice care by cardiolgy - Objective Resuscitation Status: Resuscitation Status DNR:Do Not Resuscitate MAR Reviewed: Yes Vital Signs & Weight: Vital Signs (12 hours) Temp Pulse Resp BP BP Pulse Ox 12/17/17 15:20 83 16 12/17/17 11:35 97.5 F L 88 20 132/65 95 12/17/17 10:59 90 20 12/17/17 08:41 142/82 H 12/17/17 07:50 98.1 F 97 22 H 145/72 H 98 12/17/17 07:28 97 12/17/17 07:26 95 20 97 Weight Weight 195 lb 12.8 oz I&O: 12/16/17 12/17/17 12/18/17 06:59 06:59 06:59 Intake Total 650 Balance 650 Result Diagrams: 12/17/17 05:33 12/17/17 05:33 Radiology Reviewed by me: Yes Phys Exam - Physical Examination HEENT: PERRLA Neck: no nodes Respiratory: no wheezing Cardiovascular: RRR Gastrointestinal: soft, non-tender Musculoskeletal: no edema Dx/Plan (1) Acute on chronic combined systolic and diastolic ACC/AHA stage C congestive heart failure Code(s): I50.43 - ACUTE ON CHRONIC COMBINED SYSTOLIC AND DIASTOLIC HRT FAIL Status: Acute Comment: on IV diuretics (2) Elevated troponin Code(s): R74.8 - ABNORMAL LEVELS OF OTHER SERUM ENZYMES Status: Acute Comment: due to demand ischemia (3) Hypokalemia Code(s): E87.6 - HYPOKALEMIA Status: Acute (4) Aortic stenosis Code(s): I35.0 - NONRHEUMATIC AORTIC (VALVE) STENOSIS Status: Chronic Comment: No Intervention due to comorbitties. (5) CKD (chronic kidney disease) stage 3, GFR 30-59 ml/min Code(s): N18.3 - CHRONIC KIDNEY DISEASE, STAGE 3 (MODERATE) Status: Chronic (6) HTN (hypertension) Code(s): I10 - ESSENTIAL (PRIMARY) HYPERTENSION Status: Chronic - Plan cont current plan of care, PT/OT, geriatric social worker, incentive spirometry, DVT proph w/SCDs Will need to Discuss with Family about Hospice care, pt is DNR/DNI.
[2017-12-17] MEDS: Atorvastatin Calcium 20 MG TAB PO SCH (22:15)
[2017-12-18] MEDS: Acetaminophen 325 MG TAB PO PRN (05:45)
[2017-12-18] MEDS: MEXILETINE 200 MG CAP PO SCH ×2 (05:46→14:09)
[2017-12-18] MEDS: Furosemide 40 MG TAB PO SCH (09:59)
[2017-12-18] MEDS: Ferrous Sulfate 325 MG TAB PO SCH (10:00)
[2017-12-18] MEDS: Potassium Chloride 20 MEQ TAB PO SCH (10:01)
[2017-12-18] MEDS: Carvedilol 3.125 MG TAB PO SCH (10:01)
[2017-12-18] MEDS: Aspirin 81 mg Enteric Coated Tablet PO SCH (10:01)
[2017-12-18] MEDS: Doxycycline 100 MG CAP PO SCH (10:02)
[2017-12-18] MEDS: Heparin 5,000 UNITS/ML VIAL SC SCH (10:02)
[2017-12-18] MEDS: Polyethylene Glycol 3350 17 GM Packet PO SCH (10:03)
[2017-12-18] MEDS: Senokot S 8.6-50 MG TAB PO SCH ×2 (10:03→10:04)
--- NOTE | 2017-12-18 15:31 | DIS ---
DATE OF ADMISSION: 12/12/2017 DATE OF DISCHARGE: 12/18/2017 ADMITTING DIAGNOSIS: Acute hypoxic respiratory failure. DISCHARGE DIAGNOSES: Acute hypoxic respiratory failure secondary to acute congestive heart failure, diastolic dysfunction. SECONDARY DIAGNOSES: 1. Acute severe aortic stenosis. 2. Severe left ventricular dysfunction. 3. Hypercholesterolemia. 4. History of seizure disorder. 5. History of chronic kidney disease. 6. History of severe dementia. CONSULTANTS INVOLVED IN THE CARE: Rakesh Ware M.D. INVESTIGATIONS DONE DURING THIS ADMISSION: A 2D echo which showed an evidence of severe aortic steno sis with EF of 20%-25%. HISTORY OF PRESENT ILLNESS AND HOSPITAL COURSE: In brief, this is an 87-year-old elderly white male with known history of coronary artery disease and a history of severe dementia. He was noted to have severe shortness of breath as he was having severe worsening weight gain at home. The patient had a 2D echo which showed an evidence of severe low EF of 25%-20% with severe aortic stenosis. Patient w as seen by Cardiology and this suggested no intervention at this time as the patient is elderly and h as multiple comorbidities and has severe aortic stenosis and low EF. Recommended hospice at this anabella e. The patient was treated with IV Lasix to get his fluid status back to normal. He did tolerate th at blood pressure was better with the higher Lasix dose. The patient showed good improvement with hi s euvolemic status, but he has very poor prognosis and Cardiology suggested hospice, but the family d ecided to go for [facility] care and they wanted a long term placement. The patient is disch arged to long term facility in stable condition. PHYSICAL EXAMINATION: On day of discharge. VITAL SIGNS: Blood pressures of 125/60, heart rate is 85, respiration rate is 18, saturating 96% on room air. GENERAL: The patient is moderately built and moderately nourished, does not appear to be in acute di stress. CARDIOVASCULAR: S1, S2 normal. No murmurs, no rubs, no gallops. LUNGS: Bilateral air entry was equal. No wheezing, no crackles. ABDOMEN: Soft, nontender, no guarding, no rebound tenderness. Bowel sounds normal. MUSCULOSKELETAL: No calf tenderness. No pedal edema. EXTREMITIES: No joint tenderness, no joint swelling. SKIN: No cyanosis, no erythema, no rash, no pallor. NEUROLOGIC: Cranial nerve examination II-XII intact. No focal deficits were noted. DISCHARGE MEDICATIONS: 1. Aspirin 325 mg p.o. daily. 2. Atorvastatin 20 mg p.o. daily. 3. Coreg 3.125 mg p.o. b.i.d. 4. Ferrous sulfate 325 mg p.o. daily. 5. Lasix 40 mg p.o. daily. 6. Mexiletine 200 mg p.o. q.8 hours. 7. Phenytoin sodium 300 mg p.o. daily. 8. Potassium 10 mEq p.o. daily. DISCHARGE INSTRUCTIONS: Continue activity as tolerated. Advised to follow up with primary care phys ician in 1-2 weeks. Advised to continue the cardiac diet with 2 gram sodium. Advised to watch his d aily weights, avoid any volume overload and to give extra Lasix if the weight increases more than 1 p ound. I spent 35 minutes with this patient on date of discharge.
[2017-12-18 17:18] VITALS: BP 122/64; TEMP 97.9
== END 2017-12-18 17:08 | DRG 291 ==
LOC: ERS 14:47 → 2NO 17:48
PROVIDERS: ADMIT Internal Medicine; ATTEND Internal Medicine
DX: I13.0 Hypertensive heart and chronic kidney disease with heart failure and stage 1 through stage 4 chronic kidney disease, or unspecified chronic kidney disease (principal); J96.01 Acute respiratory failure with hypoxia; I50.43 Acute on chronic combined systolic (congestive) and diastolic (congestive) heart failure; I24.8 Other forms of acute ischemic heart disease; F03.90 Unspecified dementia, unspecified severity, without behavioral disturbance, psychotic disturbance, mood disturbance, and anxiety; K21.9 Gastro-esophageal reflux disease without esophagitis; G40.909 Epilepsy, unspecified, not intractable, without status epilepticus; I35.0 Nonrheumatic aortic (valve) stenosis; N18.3 Chronic kidney disease, stage 3 (moderate); E78.00 Pure hypercholesterolemia, unspecified; E87.6 Hypokalemia; J20.9 Acute bronchitis, unspecified; Z87.891 Personal history of nicotine dependence; Z66 Do not resuscitate; Z88.8 Allergy status to other drugs, medicaments and biological substances; Z79.82 Long term (current) use of aspirin; Z79.899 Other long term (current) drug therapy
CPT/HCPCS: 36415; 71045; 80048; 80053; 80069; 80185; 81003; 82550; 82553; 83735; 83880; 84100; 84145; 84443; 84484; 85025; 87086; 90471; 90670; 93005; 93306; 93798; 94640; 96374; A4216; G0009; G8978-GP-CM; G8979-GP-CL; G8990-GO-CK; G8991-GO-CJ; J1644; J1940; J2543; J3475; J3480; J7050; J7620

== ENCOUNTER 2018-06-01 00:28 | Inpatient (IN) | payer MEDICARE ==
[2018-06-01 01:52] LABS: #Basophils 0.1 thou/uL (0.0-0.2); #Eosinphils 0.6 thou/uL (0.0-0.7); #Lymphocytes 1.7 thou/uL (1.20-3.40); #Monocytes 0.4 thou/uL (0.11-0.59); #Neutrophils 5.6 thou/uL (1.40-6.50); %Basophils 1.1 % (0.0-1.0); %Eosinophils 7.2 % (0.0-10.0); %Lymphocytes 20.4 % (21.0-51.0); %Monocytes 5.1 % (0.0-10.0); %Neutrophils 66.2 % (42.0-75.0); Hemoglobin 9.1 g/dL (14.0-18.0); Mean Corpuscular HGB CONC 32.7 g/dL (32.0-36.0); Mean Corpuscular Hemoglobin 33.7 pg (27.0-31.0); Mean Platelet Volume 8.5 fL (7.4-10.4); Platelet Count 272 thou/uL (130-400); RBC Distribution Width 14.9 % (11.5-14.5); Red Blood Cell (RBC) Count 2.71 mill/uL (4.70-6.10); White Blood Cell (WBC) Count 8.4 thou/uL (4.8-10.8)
[2018-06-01 02:08] LABS: Bilirubin Negative (Negative); Blood, Urine Negative (Negative); Clarity CLEAR (Clear); Glucose, Urine (Dipstick) Negative (Negative); Leukocyte Negative (Negative); Nitrite Negative (Negative); Protein, Urine (Dipstick) 30 mg/dL (Neg-Trace); Specific Gravity, Urine 1.017 (1.002-1.036); Urobilinogen 0.2 mg/dL (0.2-1.0); pH, Urine 6.5 (5.0-9.0)
[2018-06-01 02:09] LABS: ALT (SGPT) 11 U/L (8-55); AST (SGOT) 16 U/L (5-34); Albumin 3.4 g/dL (3.4-4.8); Alkaline Phosphatase 114 U/L (40-150); Anion Gap 12 mmol/L (10-20); BUN (Urea Nitrogen) 35 mg/dL (8.4-25.7); Bilirubin, Total 0.3 mg/dL (0.2-1.2); CK (CPK) 25 U/L (30-200); Calc. Creatinine Clearance 0 mL/min (70-130); Calcium 8.5 mg/dL (7.8-10.44); Carbon Dioxide 26 mmol/L (23-31); Chloride 104 mmol/L (98-107); Estimated GFR-MDRD 40; Globulin 3.1 g/dL (2.4-3.5); Glucose 101 mg/dL (83-110); Lipase 31 U/L (8-78); Protein, Total 6.5 g/dL (5.8-8.1); Sodium 138 mmol/L (136-145)
[2018-06-01 02:10] LABS: Bacteria/HPF None Seen HPF (None Seen); Hyaline Casts/LPF 0-3 HYALINE CAST LPF (0-3 Hyaline); Pathc Cast-AUWi Flag 0.14 (0-2.49); RBC/HPF 0-3 HPF (0-3); Squamous Epithelial None Seen HPF (0-3); WBC/HPF 0-3 HPF (0-3)
[2018-06-01 02:12] LABS: CKMB 1.6 ng/mL (0-6.6); Troponin I 0.094 ng/mL (< 0.028)
[2018-06-01] MEDS ORDERED: Furosemide 40 MG/4 ML VIAL ONE ×2 (02:17→13:42)
[2018-06-01 05:19] LABS: Troponin I 0.096 ng/mL (< 0.028)
[2018-06-01 08:22] LABS: Troponin I 0.102 ng/mL (< 0.028)
[2018-06-01] MEDS ORDERED: Benzonatate 100 MG CAP PO PRN (08:23)
[2018-06-01] MEDS ORDERED: Senokot S 8.6-50 MG TAB PO PRN ×2 (08:23)
[2018-06-01] MEDS ORDERED: Ondansetron PF 4 MG/2 ML Vial IVP PRN ×2 (08:23)
[2018-06-01] MEDS ORDERED: Bisacodyl 5 MG TAB PO PRN ×2 (08:23)
[2018-06-01] MEDS ORDERED: Diabetic Tussin 200 MG/10 ML UDCUP PO PRN (08:23)
[2018-06-01] MEDS ORDERED: hydrALAZINE 20 MG/ML VIAL SLOW IVP PRN (08:23)
[2018-06-01] MEDS ORDERED: Nitroglycerin 0.4 MG TAB (25 Tab Bottle) SL PRN (08:23)
[2018-06-01] MEDS ORDERED: Calcium Carbonate 500 MG ChewTAB PO PRN (08:23)
[2018-06-01] MEDS ORDERED: cloNIDine 0.1 MG TAB PO PRN (08:23)
--- NOTE | 2018-06-01 08:28 | RAD ---
CHEST ONE VIEW: History: Dyspnea. Comparison: 12-12-17 FINDINGS: Heart size is enlarged. The pulmonary artery is enlarged. Mild edema. There is edema superimposed on chronic interstitial markings in the lung bases. No pneumothorax. IMPRESSION: 1. Cardiomegaly. Mild pulmonary edema. 2. Pulmonary arterial hypertension. 3. Likely small effusion. POS: [facility]
[2018-06-01] MEDS ORDERED: Sodium Chloride 0.65% Nasal 44 ML BOT EA NARE PRN (08:51)
[2018-06-01] MEDS ORDERED: Cepastat Lozenges 1 LOZ PO PRN (08:51)
[2018-06-01] MEDS ORDERED: Loratadine 10 MG TAB PO PRN (08:51)
[2018-06-01] MEDS ORDERED: Zolpidem Tartrate 5 MG TAB PO PRN (08:51)
[2018-06-01] MEDS ORDERED: Eucerin (Mineral Oil/Petrolatum,White) 30 gm Jar TOP PRN (08:51)
[2018-06-01] MEDS ORDERED: Artificial Tear Sol 15 ML BOT EA EYE PRN (08:51)
[2018-06-01] MEDS ORDERED: Loperamide HCl 2 MG CAP PO PRN (08:51)
[2018-06-01] MEDS ORDERED: Carvedilol 3.125 MG TAB PO SCH ×2 (09:00→09:30)
[2018-06-01] MEDS ORDERED: Pantoprazole 40 MG VIAL IVP SCH (09:00)
[2018-06-01] MEDS ORDERED: Potassium Chloride 20 MEQ TAB ONE (09:18)
[2018-06-01] MEDS ORDERED: Calcium Carbonate + Vit D 1 TAB PO SCH (09:30)
[2018-06-01] MEDS ORDERED: Polyethylene Glycol 3350 17 GM Packet PO SCH (09:30)
[2018-06-01] MEDS ORDERED: Furosemide 40 MG/4 ML VIAL SLOW IVP SCH (09:30)
[2018-06-01] MEDS ORDERED: Ferrous Sulfate 325 MG TAB PO SCH (09:30)
[2018-06-01] MEDS ORDERED: Albuterol Sulfate 2.5 mg/3 ml Neb ONE (10:44)
--- NOTE | 2018-06-01 12:05 | HP ---
PRIMARY CARE PHYSICIAN: Shayla Garnett D.O. REASON FOR ADMISSION: Transferred from [facility] for increasing dyspnea. HISTORY OF PRESENT ILLNESS: An 87-year-old male who has underlying history of severe aortic stenosis as well as severe cardiomyopathy with EF 20%-25%, who lives at [facility]. The patient has baseline physical deconditioning. He is only able to get out of bed with walker from bed to wheelchair. Otherwise, his performance status is very poor. He has already NYHA stage 3 -4 dyspnea at baseline. This patient was found more short of breath at [facility] and he was complaining of abdominal disco mfort and that is why he was sent to emergency room, family member present at bedside in the emergenc y room who reports that the patient is intermittently getting constipation and whenever he is getting a stool softener after that he gets shortness of breath. The patient does have bilateral lower extr emity pitting edema up to knee level. The patient is actively wheezing in the emergency room. He do es have basal rales on examination. The patient is not able to provide any good detailed history bec ause of his cognitive deficit. The patient is brought to ER for increasing shortness of breath, orthopnea, PND, as well as leg swell ing and he also has intermittent constipation. Today in the emergency room, his chest x-ray showed pulmonary vascular congestion. Routine blood usha ts showed significantly elevated BNP as well as elevated troponin. The patient is being mainly admit luna for acute on chronic systolic congestive heart failure exacerbation. Patient does not have any urinary tract infection symptoms. He does not have any constipation, diarr hea, melena or hematochezia at the [facility]. REVIEW OF SYSTEMS: The following complete review of systems was negative, unless otherwise mentioned in the HPI or below: Constitutional: Weight loss or gain, ability to conduct usual activities. Sk in: Rash, itching. Eyes: Double vision, pain. ENT/Mouth: Nose bleeding, neck stiffness, pain, te nderness. Cardiovascular: Palpitations, dyspnea on exertion, orthopnea. Respiratory: Shortness of breath, wheezing, cough, hemoptysis, fever or night sweats. Gastrointestinal: Poor appetite, abdom inal pain, heartburn, nausea, vomiting, constipation, or diarrhea. Genitourinary: Urgency, frequenc y, dysuria, nocturia. Musculoskeletal: Pain, swelling. Neurologic/Psychiatric: Anxiety, depressio n. Allergy/Immunologic: Skin rash, bleeding tendency. Please see my HPI for pertinent positive and negative. All other review of system reviewed and negat rashaun except as mentioned in the HPI. Above mentioned review of system is limited because of patient's cognitive status. PAST MEDICAL HISTORY: Chronic systolic heart failure with EF 20%-25%, ischemic cardiomyopathy, sever e aortic stenoses, Alzheimer dementia, hypertension, chronic constipation, gastroesophageal reflux di sease, seizure disorder, recurrent UTI, vitamin D deficiency, dyslipidemia, anemia of chronic disease , osteoporosis, benign enlargement of prostate. PAST SURGICAL HISTORY: Right femur fracture, required surgery and cardiac ablation. PAST PSYCHIATRIC HISTORY: Dementia. SOCIAL HISTORY: Patient is from [facility]. No history of tobacco, alcohol or illici t drug abuse. FAMILY HISTORY: No strong family history of premature coronary artery disease, stroke or cancer. ALLERGIES: MELATONIN. CURRENT HOME MEDICATIONS: The patient was discharged from hospital on following medication: Mexilet ine 200 mg q.8 hourly, aspirin 325 mg daily, Lipitor 20 mg p.o. at bedtime, calcium with vitamin D 1 tablet daily, Coreg 3.125 mg p.o. b.i.d., vitamin D3 of 2000 units p.o. daily, ferrous sulfate 325 mg p.o. daily, Lasix 40 mg p.o. daily, Dilantin 300 mg p.o. daily, potassium chloride 10 mEq p.o. daily , Senokot 1 tablet twice daily. EMERGENCY ROOM COURSE: Patient has received Lasix 40 mg IV, aspirin 325 mg, mexiletine 200 mg, albut shady nebulization. PHYSICAL EXAMINATION: VITAL SIGNS: Currently, blood pressure 137/71, pulse 73, respiratory rate 22, temperature 98.0, satu ration 100% on 2 liter oxygen, weight 77.1 kilograms. GENERAL: Patient is currently short of breath, appears chronically ill. HEAD: Normocephalic, atraumatic. EYES: Pupils round, reactive to light. Extraocular muscle intact. ENT: Oropharynx within normal limits. Moist mucous membranes, no oral lesion, no pharyngeal erythem a, no exudate. NECK: Supple. JVD noted. No carotid bruit. LUNGS: Bilateral wheezing heard, bilateral basilar rales heard. CARDIOVASCULAR: S1, S2 regular. Systolic murmur present at parasternal area as well as the precordi um. ABDOMEN: Soft. No peritoneal sign, no guarding, no rigidity, no rebound, no right upper quadrant or lower quadrant discomfort on deep palpation. BACK: Unremarkable, no CVA tenderness. EXTREMITIES: Upper extremity: Passive movements of all joints are normal. Lower extremity: Bilate ral +2 pitting edema up to knee level. Good distal pulsation. SKIN: No skin rash. HEMATOLOGICAL: No lymphadenopathy. PSYCHIATRIC: Normal affect. SIGNIFICANT LABORATORY DATA: EKG showing premature ventricular complexes, LVH with repolarization ch anges. Chest x-ray showing cardiomegaly, pulmonary vascular congestion, pulmonary arterial hypertens ion. CBC: WBC 8.4, hemoglobin 9.1, platelet 272, MCV 103. BMP: Sodium 138, potassium 4.0, chlorid e 104, carbon dioxide 26, BUN 35, creatinine 1.66, glucose 101, calcium 8.5. LFT: AST 16, ALT 11, a lkaline phosphatase 114, albumin 3.4, lipase 31. CK 25, CK-MB 1.6, troponin 0.094 then 0.096 then 0. 102. BNP 927.2. Urinalysis unremarkable. ASSESSMENT AND PLAN: 1. Acute on chronic systolic congestive heart failure, NYHA stage 4 and ACC stage C. The patient arteaga s significant fluid overload status. He will require 2-3 days in hospital to make him euvolemic. Th e patient will require Lasix 40 mg IV b.i.d. We will continue Coreg 3.125 mg p.o. b.i.d. and will st art lisinopril 2.5 mg p.o. daily. We will monitor renal function, electrolytes and titrate medicatio n as tolerated. We will monitor daily weight, input and output chart. Heart failure education given to patient and family member at bedside. 2. Macrocytic anemia, likely related with Dilantin therapy. We will continue folic acid and vitamin B12 therapy. 3. Chronic kidney disease stage 3. We will monitor renal function and replace electrolytes accordin gly. Avoid nephrotoxin agent. 4. Elevated troponin, likely due to demand ischemia. Patient has previously elevated troponin as we ll. The patient is not complaining of any chest pain. We will continue aspirin 325 mg p.o. daily, L ipitor 20 mg p.o. at bedtime. 5. Severe aortic stenosis. The patient has very poor performance status, he is not a candidate for surgical valve replacement. Cardiology has been evaluated during previous admission. At this point, the patient is not a candidate for any intervention. We will consult palliative care. 6. Chronic constipation. We will continue patient's stool softener medication while in hospital. 7. Physical deconditioning. Patient will need PT, OT evaluation. 8. Code status: The patient has a DNR status at [facility] and confirmed with the patient's daugh ter, she wanted to continue DNR status while in hospital. 9. Dyslipidemia. Continue Lipitor 20 mg p.o. at bedtime. 10. Alzheimer dementia, supportive care. 11. Deep venous thrombosis prophylaxis. Lovenox 40 mg subcu daily. 12. Gastrointestinal prophylaxis, Pepcid 20 mg p.o. daily. 13. Unspecified arrhythmia. The patient is already on mexiletine, which we will continue while in h ospital. 14. Seizure disorder. We will continue Dilantin 300 mg p.o. at bedtime. Disposition plan based on clinical course. We are expecting patient's stay in hospital more than 2 m idnights. Plan of care discussed with the patient and family member at bedside.
[2018-06-01] MEDS: Aspirin 325 mg Enteric Coated Tablet PO SCH (16:23)
[2018-06-01] MEDS: Potassium Chloride 20 MEQ in Premix Bag 1 BAG IVPB SCH (16:24)
[2018-06-01] MEDS: Potassium Chloride 10 MEQ TAB PO SCH (16:24)
[2018-06-01] MEDS: Senokot S 8.6-50 MG TAB PO SCH ×2 (16:25→21:04)
[2018-06-01] MEDS: MEXILETINE HCL 200 MG PO SCH ×2 (16:26→21:05)
[2018-06-01] MEDS: Furosemide 40 MG/4 ML VIAL SLOW IVP SCH (16:26)
[2018-06-01] MEDS: Cyanocobalamin (Vitamin B-12) 1,000 MCG TAB PO SCH (16:27)
[2018-06-01] MEDS: Folic Acid 1 MG TAB PO SCH (16:28)
[2018-06-01] MEDS: Enoxaparin Sodium 40 MG/0.4 ML SYRINGE SC SCH (16:29)
[2018-06-01 16:33] VITALS: BMI 26.3
[2018-06-01] MEDS: Carvedilol 3.125 MG TAB PO SCH (17:12)
[2018-06-01] MEDS ORDERED: Prevnar 13-Val Conj/PF 0.5 ML SYRINGE IM ONE (21:00)
[2018-06-01] MEDS: Atorvastatin Calcium 20 MG TAB PO SCH (21:04)
[2018-06-02] MEDS: HYDROcodone/Acetaminophen 5/325 mg Tablet PO PRN ×3 (03:22→20:46)
[2018-06-02] MEDS: MEXILETINE HCL 200 MG PO SCH ×3 (05:25→20:46)
[2018-06-02] MEDS: Furosemide 40 MG/4 ML VIAL SLOW IVP SCH ×2 (05:25→13:19)
[2018-06-02 06:16] LABS: #Basophils 0.1 thou/uL (0.0-0.2); #Eosinphils 0.7 thou/uL (0.0-0.7); #Lymphocytes 1.5 thou/uL (1.20-3.40); #Monocytes 0.5 thou/uL (0.11-0.59); #Neutrophils 4.8 thou/uL (1.40-6.50); %Basophils 1.3 % (0.0-1.0); %Eosinophils 9.5 % (0.0-10.0); %Lymphocytes 19.6 % (21.0-51.0); %Monocytes 6.7 % (0.0-10.0); %Neutrophils 62.9 % (42.0-75.0); Hemoglobin 9.7 g/dL (14.0-18.0); Mean Corpuscular HGB CONC 32.4 g/dL (32.0-36.0); Mean Corpuscular Hemoglobin 33.5 pg (27.0-31.0); Mean Platelet Volume 8.8 fL (7.4-10.4); Platelet Count 275 thou/uL (130-400); RBC Distribution Width 15.1 % (11.5-14.5); Red Blood Cell (RBC) Count 2.89 mill/uL (4.70-6.10); White Blood Cell (WBC) Count 7.6 thou/uL (4.8-10.8)
[2018-06-02 06:32] LABS: Anion Gap 11 mmol/L (10-20); BUN (Urea Nitrogen) 34 mg/dL (8.4-25.7); Calc. Creatinine Clearance 41 mL/min (70-130); Calcium 8.7 mg/dL (7.8-10.44); Carbon Dioxide 28 mmol/L (23-31); Chloride 101 mmol/L (98-107); Estimated GFR-MDRD 41; Glucose 91 mg/dL (83-110); Magnesium 2.1 mg/dL (1.6-2.6); Potassium 4.2 mmol/L (3.5-5.1); Sodium 136 mmol/L (136-145); Uric Acid 5.9 mg/dL (3.5-7.2)
[2018-06-02] MEDS: Potassium Chloride 20 MEQ in Premix Bag 1 BAG IVPB SCH ×2 (09:40→11:42)
[2018-06-02] MEDS: Ferrous Sulfate 325 MG TAB PO SCH (09:41)
[2018-06-02] MEDS: Calcium Carbonate + Vit D 1 TAB PO SCH (09:41)
[2018-06-02] MEDS: Carvedilol 3.125 MG TAB PO SCH ×2 (09:41→17:53)
[2018-06-02] MEDS: Cyanocobalamin (Vitamin B-12) 1,000 MCG TAB PO SCH (09:41)
[2018-06-02] MEDS: Aspirin 325 mg Enteric Coated Tablet PO SCH (09:41)
[2018-06-02] MEDS: Famotidine 20 MG TAB PO SCH (09:42)
[2018-06-02] MEDS: Lisinopril 2.5 MG TAB PO SCH (09:42)
[2018-06-02] MEDS: Enoxaparin Sodium 40 MG/0.4 ML SYRINGE SC SCH (09:42)
[2018-06-02] MEDS: Potassium Chloride 10 MEQ TAB PO SCH (09:42)
[2018-06-02] MEDS: Senokot S 8.6-50 MG TAB PO SCH ×2 (09:43→20:46)
[2018-06-02] MEDS: Folic Acid 1 MG TAB PO SCH (09:43)
[2018-06-02] MEDS ORDERED: Metolazone 2.5 MG TAB PO SCH (12:00)
--- NOTE | 2018-06-02 14:29 | PDOC.PN ---
- Subjective Encounter Start Date: 06/02/18 Encounter Start Time: 14:28 Subjective: still feels SOb but slightly better than yesterday -: no CP - Objective Resuscitation Status: 06/02/18 11:39 Resuscitation Status Routine Resuscitation Status: DNAR: NO Resuscitation Discussed with: Leonardo WU comment, discussed with patient dtr MAR Reviewed: Yes Vital Signs & Weight: Vital Signs (12 hours) Temp Pulse Pulse Resp BP BP BP 06/02/18 09:42 71 120/65 06/02/18 08:56 91 120/55 L 06/02/18 08:00 06/02/18 07:20 97.1 F L 71 20 120/65 06/02/18 04:00 98.0 F 75 18 121/56 L Pulse Ox 06/02/18 09:42 06/02/18 08:56 06/02/18 08:00 97 06/02/18 07:20 97 06/02/18 04:00 96 Weight Weight 188 lb 3.2 oz I&O: 06/01/18 06/02/18 06/03/18 06:59 06:59 06:59 Intake Total 210 Output Total 1280 Balance -1070 Result Diagrams: 06/02/18 05:17 06/02/18 05:17 Additional Labs: Laboratory Tests 05/26/18 06/01/18 06/01/18 04:05 01:41 01:41 Creatinine 1.59 H 1.66 H Troponin I 0.094 H B-Natriuretic Peptide TSH 3rd Generation 06/01/18 06/01/18 06/01/18 01:41 04:43 07:51 Creatinine Troponin I 0.096 H 0.102 H B-Natriuretic Peptide 927.2 H TSH 3rd Generation 06/02/18 06/02/18 05:17 05:17 Creatinine 1.60 H Troponin I B-Natriuretic Peptide TSH 3rd Generation 0.9159 Phys Exam - Physical Examination Constitutional: NAD HEENT: PERRLA, moist MMs, sclera anicteric, oral pharynx no lesions Neck: no nodes, no JVD, supple Respiratory: wheezing present Cardiovascular: RRR, no significant murmur, no rub Gastrointestinal: soft, non-tender, no distention, positive bowel sounds Musculoskeletal: pulses present, edema present Neurological: non-focal, normal sensation, moves all 4 limbs Psychiatric: normal affect, A&O x 3 Skin: no rash Dx/Plan (1) Acute on chronic combined systolic and diastolic ACC/AHA stage C congestive heart failure Code(s): I50.43 - ACUTE ON CHRONIC COMBINED SYSTOLIC AND DIASTOLIC HRT FAIL Status: Acute Comment: on IV diuretics (2) Elevated troponin Code(s): R74.8 - ABNORMAL LEVELS OF OTHER SERUM ENZYMES Status: Acute Comment: due to demand ischemia (3) Aortic stenosis Code(s): I35.0 - NONRHEUMATIC AORTIC (VALVE) STENOSIS Status: Chronic Comment: No Intervention due to comorbitties. (4) CKD (chronic kidney disease) stage 3, GFR 30-59 ml/min Code(s): N18.3 - CHRONIC KIDNEY DISEASE, STAGE 3 (MODERATE) Status: Chronic (5) HTN (hypertension) Code(s): I10 - ESSENTIAL (PRIMARY) HYPERTENSION Status: Chronic (6) Macrocytic anemia Code(s): D53.9 - NUTRITIONAL ANEMIA, UNSPECIFIED Status: Acute (7) Dementia Code(s): F03.90 - UNSPECIFIED DEMENTIA WITHOUT BEHAVIORAL DISTURBANCE Status: Chronic - Plan PT/OT, respiratory therapy, incentive spirometry, DVT proph w/SCDs cont diuresis.one dose zaroxolyn -: cont ASA,statin,BB,TAMMY-I. -: not hospice per famiuly discussion w PCT -: will target euvolemia w DC back to NH. -: HD stable. monitor lytes.add prn nebs * . Review of Systems - Review of Systems Constitutional: weakness, malaise. negative: fever, chills, sweats, other Respiratory: Shortness of Breath, SOB with Excertion, Wheezing. negative: Cough , Dry, Hemoptysis, Pleuritic Pain, Sputum Cardiovascular: negative: chest pain, palpitations, orthopnea, paroxysmal nocturnal dyspnea, edema, light headedness, other Gastrointestinal: negative: Nausea, Vomiting, Abdominal Pain, Diarrhea, Constipation, Melena, Hematochezia, Other Genitourinary: negative: Dysuria, Frequency, Incontinence, Hematuria, Retention , Other Musculoskeletal: negative: Neck Pain, Shoulder Pain, Arm Pain, Back Pain, Hand Pain, Leg Pain, Foot Pain, Other Skin: negative: Rash, Lesions, Isaac, Bruising, Other Neurological: negative: Weakness, Numbness, Incoordination, Change in Speech, Confusion, Seizures, Other - Medications/Allergies Allergies/Adverse Reactions: Allergies Allergy/AdvReac Type Severity Reaction Status Date / Time melatonin Allergy Verified 06/01/18 18:32 Medications: Current Medications Acetaminophen (Tylenol) 650 mg PO Q4H PRN PRN Reason: Headache/Fever/Mild Pain (1-3) Hydrocodone Bitart/Acetaminophen ([place] 5/325) 1 tab PO Q4H PRN PRN Reason: Moderate Pain (4-6) Last Admin: 06/02/18 13:23 Dose: 1 tab Albuterol/Ipratropium (Duoneb) 3 ml NEB Q4H PRN PRN Reason: Dyspnea/Wheezing/SOB Artificial Tears (Tears Renewed 15ml Bottle) 2 drop EA EYE PRN PRN PRN Reason: Dry Eyes Aspirin (Ecotrin) 325 mg PO DAILY [facility] Last Admin: 06/02/18 09:41 Dose: 325 mg Atorvastatin Calcium (Lipitor) 20 mg PO HS [facility] Last Admin: 06/01/18 21:04 Dose: 20 mg Benzonatate (Tessalon) 100 mg PO Q6H PRN PRN Reason: Cough Bisacodyl (Dulcolax) 10 mg PO DAILYPRN PRN PRN Reason: Constipation Calcium Carbonate (Tums) 1,000 mg PO Q4H PRN PRN Reason: Heartburn or Indigestion Calcium/Vitamin D (Caltrate 600 + Vit D) 1 tab PO DAILY [facility] Last Admin: 06/02/18 09:41 Dose: 1 tab Carvedilol (Coreg) 3.125 mg PO BID-[facility] Last Admin: 06/02/18 09:41 Dose: 3.125 mg Cholecalciferol (Vitamin D3) 2,000 units PO DAILY [facility] Last Admin: 06/02/18 09:42 Dose: 2,000 units Clonidine (Catapres) 0.1 mg PO Q4H PRN PRN Reason: SBP > 160____ Cyanocobalamin (Vitamin B-12) 1,000 mcg PO DAILY [facility] Last Admin: 06/02/18 09:41 Dose: 1,000 mcg Enoxaparin Sodium (Lovenox) 40 mg SC 0900 [facility] Last Admin: 06/02/18 09:42 Dose: 40 mg Famotidine (Pepcid) 20 mg PO DAILY [facility] Last Admin: 06/02/18 09:42 Dose: 20 mg Ferrous Sulfate (Feosol) 325 mg PO DAILY [facility] Last Admin: 06/02/18 09:41 Dose: 325 mg Folic Acid (Folvite) 1 mg PO DAILY [facility] Last Admin: 06/02/18 09:43 Dose: 1 mg Furosemide (Lasix) 40 mg SLOW IVP 0600,1400 [facility] Last Admin: 06/02/18 13:19 Dose: 40 mg Guaifenesin (Robitussin Sf) 200 mg PO Q4H PRN PRN Reason: Cough Hydralazine HCl (Apresoline) 10 mg SLOW IVP Q4H PRN PRN Reason: SBP > 180 and HR < 70 Potassium Chloride 20 meq/ (Device) 100 mls @ 50 mls/hr IVPB DAILY [facility] Last Admin: 06/02/18 11:42 Dose: Not Given Lisinopril (Zestril) 2.5 mg PO DAILY [facility] Last Admin: 06/02/18 09:42 Dose: 2.5 mg Loperamide HCl (Imodium) 2 mg PO PRN PRN PRN Reason: Diarrhea/Loose Stools Loratadine (Claritin) 10 mg PO DAILYPRN PRN PRN Reason: Sinus Symptoms Mineral Oil/White Petrolatum (Eucerin Cream) 0 gm TOP BIDPRN PRN PRN Reason: Dry Skin Nitroglycerin (Nitrostat) 0.4 mg SL Q5MIN PRN PRN Reason: Chest Pain Ondansetron HCl (Zofran) 4 mg IVP Q6H PRN PRN Reason: Nausea/Vomiting Ondansetron HCl (Zofran) 4 mg IVP Q6H PRN PRN Reason: Nausea/Vomiting Pantoprazole Sodium (Protonix) 40 mg PO DAILY [facility] Last Admin: 06/02/18 09:41 Dose: 40 mg Mexiletine Hcl [ Mexiletine Hcl] 200 Mg 0 each PO Q8HR [facility] Last Admin: 06/02/18 13:21 Dose: 1 each Phenytoin Sodium (Dilantin Er) 300 mg PO DAILY [facility] Last Admin: 06/02/18 09:42 Dose: 300 mg Potassium Chloride (Klor-Con 10) 10 meq PO DAILY [facility] Last Admin: 06/02/18 09:42 Dose: 10 meq Senna/Docusate Sodium (Senokot S) 2 tab PO BID PRN PRN Reason: Constipation Senna/Docusate Sodium (Senokot S) 1 tab PO BID [facility] Last Admin: 06/02/18 09:43 Dose: Not Given Sodium Chloride ([place] Nasal [place] 0.65%) 0 ml EA NARE QIDPRN PRN PRN Reason: Nasal Congestion Throat Lozenges (Cepastat Lozenges) 1 lexa PO Q2H PRN PRN Reason: Sore Throat Zolpidem Tartrate (Ambien) 5 mg PO HSPRN PRN PRN Reason: Insomnia
[2018-06-02] MEDS: Atorvastatin Calcium 20 MG TAB PO SCH (20:46)
[2018-06-03] MEDS: HYDROcodone/Acetaminophen 5/325 mg Tablet PO PRN ×2 (03:40→23:38)
[2018-06-03] MEDS: Furosemide 40 MG/4 ML VIAL SLOW IVP SCH ×2 (05:25→14:24)
[2018-06-03] MEDS: MEXILETINE HCL 200 MG PO SCH ×3 (05:26→20:23)
[2018-06-03 05:51] LABS: #Basophils 0.1 thou/uL (0.0-0.2); #Eosinphils 0.6 thou/uL (0.0-0.7); #Lymphocytes 1.5 thou/uL (1.20-3.40); #Monocytes 0.5 thou/uL (0.11-0.59); #Neutrophils 7.3 thou/uL (1.40-6.50); %Basophils 0.8 % (0.0-1.0); %Eosinophils 5.7 % (0.0-10.0); %Lymphocytes 14.9 % (21.0-51.0); %Monocytes 4.8 % (0.0-10.0); %Neutrophils 73.9 % (42.0-75.0); Hemoglobin 10.3 g/dL (14.0-18.0); Mean Corpuscular HGB CONC 33.5 g/dL (32.0-36.0); Platelet Count 287 thou/uL (130-400); RBC Distribution Width 14.8 % (11.5-14.5); Red Blood Cell (RBC) Count 3.03 mill/uL (4.70-6.10); White Blood Cell (WBC) Count 9.9 thou/uL (4.8-10.8)
[2018-06-03 06:05] LABS: Anion Gap 13 mmol/L (10-20); BUN (Urea Nitrogen) 41 mg/dL (8.4-25.7); Calc. Creatinine Clearance 38 mL/min (70-130); Calcium 8.5 mg/dL (7.8-10.44); Carbon Dioxide 28 mmol/L (23-31); Chloride 97 mmol/L (98-107); Estimated GFR-MDRD 38; Glucose 93 mg/dL (83-110); Sodium 134 mmol/L (136-145)
[2018-06-03] MEDS: Calcium Carbonate + Vit D 1 TAB PO SCH (08:57)
[2018-06-03] MEDS: Cyanocobalamin (Vitamin B-12) 1,000 MCG TAB PO SCH (08:57)
[2018-06-03] MEDS: Aspirin 325 mg Enteric Coated Tablet PO SCH (08:57)
[2018-06-03] MEDS: Potassium Chloride 10 MEQ TAB PO SCH (08:58)
[2018-06-03] MEDS: Ferrous Sulfate 325 MG TAB PO SCH (08:58)
[2018-06-03] MEDS: Folic Acid 1 MG TAB PO SCH (08:58)
[2018-06-03] MEDS: Famotidine 20 MG TAB PO SCH (08:58)
[2018-06-03] MEDS: Enoxaparin Sodium 40 MG/0.4 ML SYRINGE SC SCH (08:58)
[2018-06-03] MEDS: Senokot S 8.6-50 MG TAB PO SCH ×2 (08:59→20:23)
[2018-06-03] MEDS: Carvedilol 3.125 MG TAB PO SCH ×2 (09:03→16:38)
[2018-06-03] MEDS: Lisinopril 2.5 MG TAB PO SCH (09:03)
--- NOTE | 2018-06-03 14:32 | PDOC.PN ---
- Subjective Encounter Start Date: 06/03/18 Encounter Start Time: 14:30 Subjective: feels that he is not doing well but can not tell what is wrong -: RN report big loose BM this morning -: BP low this morning - Objective Resuscitation Status - Order Detail: 06/02/18 11:39 Resuscitation Status Routine Resuscitation Status: DNAR: NO Resuscitation Discussed with: Per comment, discussed with patient dtr MAR Reviewed: Yes Vital Signs & Weight: Vital Signs (12 hours) Temp Pulse Resp BP BP Pulse Ox 06/03/18 11:40 97.7 F 79 16 104/57 L 96 06/03/18 09:03 79 94/49 L 06/03/18 08:55 97.6 F 81 88/50 L 95 06/03/18 04:06 71 18 94 L 06/03/18 03:50 97.5 F L 74 21 H 107/61 91 L Weight Weight 189 lb I&O: 06/02/18 06/03/18 06/04/18 06:59 06:59 06:59 Intake Total 210 550 Output Total 1280 1575 Balance -1070 -1025 Result Diagrams: 06/03/18 05:04 06/03/18 05:04 Phys Exam - Physical Examination Constitutional: NAD HEENT: PERRLA, moist MMs, sclera anicteric, oral pharynx no lesions Neck: no nodes, no JVD, supple, full ROM Respiratory: no wheezing, no rhonchi, clear to auscultation bilateral b/l rales Cardiovascular: RRR, no significant murmur, no rub Gastrointestinal: soft, non-tender, no distention, positive bowel sounds Musculoskeletal: pulses present, edema present (improving) Neurological: non-focal, normal sensation, moves all 4 limbs Psychiatric: normal affect Skin: no rash Dx/Plan (1) Acute on chronic combined systolic and diastolic ACC/AHA stage C congestive heart failure Code(s): I50.43 - ACUTE ON CHRONIC COMBINED SYSTOLIC AND DIASTOLIC HRT FAIL Status: Acute Comment: on IV diuretics (2) Elevated troponin Code(s): R74.8 - ABNORMAL LEVELS OF OTHER SERUM ENZYMES Status: Acute Comment: due to demand ischemia (3) Aortic stenosis Code(s): I35.0 - NONRHEUMATIC AORTIC (VALVE) STENOSIS Status: Chronic Comment: No Intervention due to comorbitties. (4) CKD (chronic kidney disease) stage 3, GFR 30-59 ml/min Code(s): N18.3 - CHRONIC KIDNEY DISEASE, STAGE 3 (MODERATE) Status: Chronic (5) HTN (hypertension) Code(s): I10 - ESSENTIAL (PRIMARY) HYPERTENSION Status: Chronic (6) Macrocytic anemia Code(s): D53.9 - NUTRITIONAL ANEMIA, UNSPECIFIED Status: Acute (7) Dementia Code(s): F03.90 - UNSPECIFIED DEMENTIA WITHOUT BEHAVIORAL DISTURBANCE Status: Chronic - Plan PT/OT, out of bed/ambulate, DVT proph w/SCDs reduce lasix dose.pt appears clinically improved.off of o2 -: BP meds w parameters.susceptible for hypovolemia d/t severe -: cont home meds as below -: CR.OOB.AM labs -: claritza SO back to NH tomorrow. * . Review of Systems - Review of Systems Other: limted due to advanced dementia - Medications/Allergies Allergies/Adverse Reactions: Allergies Allergy/AdvReac Type Severity Reaction Status Date / Time melatonin Allergy Verified 06/01/18 18:32 Medications: Current Medications Acetaminophen (Tylenol) 650 mg PO Q4H PRN PRN Reason: Headache/Fever/Mild Pain (1-3) Hydrocodone Bitart/Acetaminophen ([place] 5/325) 1 tab PO Q4H PRN PRN Reason: Moderate Pain (4-6) Last Admin: 06/03/18 03:40 Dose: 1 tab Albuterol/Ipratropium (Duoneb) 3 ml NEB Q4H PRN PRN Reason: Dyspnea/Wheezing/SOB Last Admin: 06/03/18 04:06 Dose: 3 ml Artificial Tears (Tears Renewed 15ml Bottle) 2 drop EA EYE PRN PRN PRN Reason: Dry Eyes Aspirin (Ecotrin) 325 mg PO DAILY [facility] Last Admin: 06/03/18 08:57 Dose: 325 mg Atorvastatin Calcium (Lipitor) 20 mg PO HS [facility] Last Admin: 06/02/18 20:46 Dose: 20 mg Benzonatate (Tessalon) 100 mg PO Q6H PRN PRN Reason: Cough Bisacodyl (Dulcolax) 10 mg PO DAILYPRN PRN PRN Reason: Constipation Calcium Carbonate (Tums) 1,000 mg PO Q4H PRN PRN Reason: Heartburn or Indigestion Calcium/Vitamin D (Caltrate 600 + Vit D) 1 tab PO DAILY [facility] Last Admin: 06/03/18 08:57 Dose: 1 tab Carvedilol (Coreg) 3.125 mg PO BID-[facility] Last Admin: 06/03/18 09:03 Dose: Not Given Cholecalciferol (Vitamin D3) 2,000 units PO DAILY [facility] Last Admin: 06/03/18 08:57 Dose: 2,000 units Clonidine (Catapres) 0.1 mg PO Q4H PRN PRN Reason: SBP > 160____ Cyanocobalamin (Vitamin B-12) 1,000 mcg PO DAILY [facility] Last Admin: 06/03/18 08:57 Dose: 1,000 mcg Enoxaparin Sodium (Lovenox) 40 mg SC 0900 [facility] Last Admin: 06/03/18 08:58 Dose: 40 mg Famotidine (Pepcid) 20 mg PO DAILY [facility] Last Admin: 06/03/18 08:58 Dose: 20 mg Ferrous Sulfate (Feosol) 325 mg PO DAILY [facility] Last Admin: 06/03/18 08:58 Dose: 325 mg Folic Acid (Folvite) 1 mg PO DAILY [facility] Last Admin: 06/03/18 08:58 Dose: 1 mg Furosemide (Lasix) 20 mg SLOW IVP 0600,1400 [facility] Last Admin: 06/03/18 14:24 Dose: 20 mg Guaifenesin (Robitussin Sf) 200 mg PO Q4H PRN PRN Reason: Cough Hydralazine HCl (Apresoline) 10 mg SLOW IVP Q4H PRN PRN Reason: SBP > 180 and HR < 70 Lisinopril (Zestril) 2.5 mg PO DAILY [facility] Last Admin: 06/03/18 09:03 Dose: Not Given Loperamide HCl (Imodium) 2 mg PO PRN PRN PRN Reason: Diarrhea/Loose Stools Loratadine (Claritin) 10 mg PO DAILYPRN PRN PRN Reason: Sinus Symptoms Mineral Oil/White Petrolatum (Eucerin Cream) 0 gm TOP BIDPRN PRN PRN Reason: Dry Skin Nitroglycerin (Nitrostat) 0.4 mg SL Q5MIN PRN PRN Reason: Chest Pain Ondansetron HCl (Zofran) 4 mg IVP Q6H PRN PRN Reason: Nausea/Vomiting Ondansetron HCl (Zofran) 4 mg IVP Q6H PRN PRN Reason: Nausea/Vomiting Pantoprazole Sodium (Protonix) 40 mg PO DAILY [facility] Last Admin: 06/03/18 08:58 Dose: 40 mg Mexiletine Hcl [ Mexiletine Hcl] 200 Mg 0 each PO Q8HR [facility] Last Admin: 06/03/18 14:26 Dose: 1 each Phenytoin Sodium (Dilantin Er) 300 mg PO DAILY [facility] Last Admin: 06/03/18 08:58 Dose: 300 mg Potassium Chloride (Klor-Con 10) 10 meq PO DAILY [facility] Last Admin: 06/03/18 08:58 Dose: 10 meq Senna/Docusate Sodium (Senokot S) 2 tab PO BID PRN PRN Reason: Constipation Senna/Docusate Sodium (Senokot S) 1 tab PO BID [facility] Last Admin: 06/03/18 08:59 Dose: Not Given Sodium Chloride ([place] Nasal [place] 0.65%) 0 ml EA NARE QIDPRN PRN PRN Reason: Nasal Congestion Throat Lozenges (Cepastat Lozenges) 1 lexa PO Q2H PRN PRN Reason: Sore Throat Zolpidem Tartrate (Ambien) 5 mg PO HSPRN PRN PRN Reason: Insomnia
[2018-06-03] MEDS: Atorvastatin Calcium 20 MG TAB PO SCH (20:23)
[2018-06-04] MEDS: HYDROcodone/Acetaminophen 5/325 mg Tablet PO PRN (03:18)
[2018-06-04 05:51] LABS: Anion Gap 12 mmol/L (10-20); BUN (Urea Nitrogen) 44 mg/dL (8.4-25.7); Calc. Creatinine Clearance 37 mL/min (70-130); Calcium 8.6 mg/dL (7.8-10.44); Carbon Dioxide 29 mmol/L (23-31); Chloride 97 mmol/L (98-107); Estimated GFR-MDRD 37; Glucose 92 mg/dL (83-110); Potassium 3.4 mmol/L (3.5-5.1); Sodium 135 mmol/L (136-145)
[2018-06-04] MEDS: MEXILETINE HCL 200 MG PO SCH ×3 (06:07→20:53)
[2018-06-04] MEDS: Furosemide 40 MG/4 ML VIAL SLOW IVP SCH (06:08)
[2018-06-04] MEDS: Carvedilol 3.125 MG TAB PO SCH ×2 (08:50→16:21)
[2018-06-04] MEDS: Calcium Carbonate + Vit D 1 TAB PO SCH (08:50)
[2018-06-04] MEDS: Aspirin 325 mg Enteric Coated Tablet PO SCH (08:50)
[2018-06-04] MEDS: Famotidine 20 MG TAB PO SCH (08:51)
[2018-06-04] MEDS: Cyanocobalamin (Vitamin B-12) 1,000 MCG TAB PO SCH (08:51)
[2018-06-04] MEDS: Enoxaparin Sodium 40 MG/0.4 ML SYRINGE SC SCH (08:51)
[2018-06-04] MEDS: Lisinopril 2.5 MG TAB PO SCH (08:51)
[2018-06-04] MEDS: Ferrous Sulfate 325 MG TAB PO SCH (08:51)
[2018-06-04] MEDS: Folic Acid 1 MG TAB PO SCH (08:51)
[2018-06-04] MEDS: Senokot S 8.6-50 MG TAB PO SCH ×2 (08:52→20:53)
[2018-06-04] MEDS: Potassium Chloride 10 MEQ TAB PO SCH (08:52)
[2018-06-04] MEDS ORDERED: Potassium Chloride 20 MEQ TAB PO SCH (09:30)
--- NOTE | 2018-06-04 13:40 | PDOC.PN ---
- Subjective Encounter Start Date: 06/04/18 Encounter Start Time: 13:32 Subjective: feels better and denies any CP/SOB -: no overnight events - Objective Resuscitation Status - Order Detail: 06/02/18 11:39 Resuscitation Status Routine Resuscitation Status: DNAR: NO Resuscitation Discussed with: Leonardo WU comment, discussed with patient dtr MAR Reviewed: Yes Vital Signs & Weight: Vital Signs (12 hours) Temp Pulse Pulse Pulse Resp BP BP 06/04/18 11:15 76 77 100/57 L 130/55 L 06/04/18 11:01 97.6 F 77 16 06/04/18 07:42 97.8 F 70 20 06/04/18 04:00 97 F L 81 18 BP Pulse Ox 06/04/18 11:15 06/04/18 11:01 102/59 L 94 L 06/04/18 07:42 112/52 L 96 06/04/18 04:00 109/59 L 97 Weight Weight 187 lb 3 oz I&O: 06/03/18 06/04/18 06/05/18 06:59 06:59 06:59 Intake Total 550 1150 Output Total 1575 350 Balance -1025 800 Result Diagrams: 06/03/18 05:04 06/04/18 05:04 Phys Exam - Physical Examination Constitutional: NAD HEENT: PERRLA, moist MMs, sclera anicteric, oral pharynx no lesions Neck: no nodes, no JVD, supple, full ROM Respiratory: no wheezing, no rales, no rhonchi, clear to auscultation bilateral Cardiovascular: RRR, no significant murmur, no rub Gastrointestinal: soft, non-tender, no distention, positive bowel sounds Musculoskeletal: no edema, pulses present Neurological: non-focal, normal sensation, moves all 4 limbs Psychiatric: normal affect, A&O x 3 Skin: no rash Dx/Plan (1) Acute on chronic combined systolic and diastolic ACC/AHA stage C congestive heart failure Code(s): I50.43 - ACUTE ON CHRONIC COMBINED SYSTOLIC AND DIASTOLIC HRT FAIL Status: Acute (2) Elevated troponin Code(s): R74.8 - ABNORMAL LEVELS OF OTHER SERUM ENZYMES Status: Acute Comment: due to demand ischemia (3) Aortic stenosis Code(s): I35.0 - NONRHEUMATIC AORTIC (VALVE) STENOSIS Status: Chronic Comment: No Intervention due to comorbitties. (4) CKD (chronic kidney disease) stage 3, GFR 30-59 ml/min Code(s): N18.3 - CHRONIC KIDNEY DISEASE, STAGE 3 (MODERATE) Status: Chronic (5) HTN (hypertension) Code(s): I10 - ESSENTIAL (PRIMARY) HYPERTENSION Status: Chronic (6) Macrocytic anemia Code(s): D53.9 - NUTRITIONAL ANEMIA, UNSPECIFIED Status: Acute (7) Dementia Code(s): F03.90 - UNSPECIFIED DEMENTIA WITHOUT BEHAVIORAL DISTURBANCE Status: Chronic - Plan PT/OT, respiratory therapy, incentive spirometry, out of bed/ambulate, DVT proph w/SCDs change lasix to Po & monitor. Not much Output or Wt loss.on RA -: on mexiletene at home for some reason not documented in chart -: known severe Cardiomyopathy & ,so will continue. -: cont home meds as below as well. -: claritza SO back to NH tomorrow if renal Fx better & no more fluid retention * .Bp also running low and meds on with parameter * am labs Review of Systems - Review of Systems Other: limited ROS due to dementia - Medications/Allergies Allergies/Adverse Reactions: Allergies Allergy/AdvReac Type Severity Reaction Status Date / Time melatonin Allergy Verified 06/01/18 18:32 Medications: Current Medications Acetaminophen (Tylenol) 650 mg PO Q4H PRN PRN Reason: Headache/Fever/Mild Pain (1-3) Hydrocodone Bitart/Acetaminophen ([place] 5/325) 1 tab PO Q4H PRN PRN Reason: Moderate Pain (4-6) Last Admin: 06/04/18 03:18 Dose: 1 tab Albuterol/Ipratropium (Duoneb) 3 ml NEB Q4H PRN PRN Reason: Dyspnea/Wheezing/SOB Last Admin: 06/03/18 04:06 Dose: 3 ml Artificial Tears (Tears Renewed 15ml Bottle) 2 drop EA EYE PRN PRN PRN Reason: Dry Eyes Aspirin (Ecotrin) 325 mg PO DAILY [facility] Atorvastatin Calcium (Lipitor) 20 mg PO HS [facility] Last Admin: 06/03/18 20:23 Dose: 20 mg Benzonatate (Tessalon) 100 mg PO Q6H PRN PRN Reason: Cough Bisacodyl (Dulcolax) 10 mg PO DAILYPRN PRN PRN Reason: Constipation Calcium Carbonate (Tums) 1,000 mg PO Q4H PRN PRN Reason: Heartburn or Indigestion Calcium/Vitamin D (Caltrate 600 + Vit D) 1 tab PO DAILY [facility] Last Admin: 06/04/18 08:50 Dose: 1 tab Carvedilol (Coreg) 3.125 mg PO BID[facility] Last Admin: 06/04/18 08:50 Dose: 3.125 mg Cholecalciferol (Vitamin D3) 2,000 units PO DAILY [facility] Last Admin: 06/04/18 08:50 Dose: 2,000 units Clonidine (Catapres) 0.1 mg PO Q4H PRN PRN Reason: SBP > 160____ Cyanocobalamin (Vitamin B-12) 1,000 mcg PO DAILY [facility] Last Admin: 06/04/18 08:51 Dose: 1,000 mcg Enoxaparin Sodium (Lovenox) 40 mg SC 0900 [facility] Last Admin: 06/04/18 08:51 Dose: 40 mg Famotidine (Pepcid) 20 mg PO DAILY [facility] Last Admin: 06/04/18 08:51 Dose: 20 mg Ferrous Sulfate (Feosol) 325 mg PO DAILY [facility] Last Admin: 06/04/18 08:51 Dose: 325 mg Folic Acid (Folvite) 1 mg PO DAILY [facility] Last Admin: 06/04/18 08:51 Dose: 1 mg Furosemide (Lasix) 40 mg PO DAILY [facility] Guaifenesin (Robitussin Sf) 200 mg PO Q4H PRN PRN Reason: Cough Hydralazine HCl (Apresoline) 10 mg SLOW IVP Q4H PRN PRN Reason: SBP > 180 and HR < 70 Lisinopril (Zestril) 2.5 mg PO DAILY [facility] Last Admin: 06/04/18 08:51 Dose: 2.5 mg Loperamide HCl (Imodium) 2 mg PO PRN PRN PRN Reason: Diarrhea/Loose Stools Loratadine (Claritin) 10 mg PO DAILYPRN PRN PRN Reason: Sinus Symptoms Mineral Oil/White Petrolatum (Eucerin Cream) 0 gm TOP BIDPRN PRN PRN Reason: Dry Skin Nitroglycerin (Nitrostat) 0.4 mg SL Q5MIN PRN PRN Reason: Chest Pain Ondansetron HCl (Zofran) 4 mg IVP Q6H PRN PRN Reason: Nausea/Vomiting Pantoprazole Sodium (Protonix) 40 mg PO DAILY [facility] Last Admin: 06/04/18 08:52 Dose: 40 mg Mexiletine Hcl [ Mexiletine Hcl] 200 Mg 0 each PO Q8HR [facility] Last Admin: 06/04/18 06:07 Dose: 1 each Phenytoin Sodium (Dilantin Er) 300 mg PO DAILY [facility] Last Admin: 06/04/18 08:52 Dose: 300 mg Potassium Chloride (Klor-Con 10) 10 meq PO DAILY [facility] Last Admin: 06/04/18 08:52 Dose: 10 meq Senna/Docusate Sodium (Senokot S) 2 tab PO BID PRN PRN Reason: Constipation Senna/Docusate Sodium (Senokot S) 1 tab PO BID [facility] Last Admin: 06/04/18 08:52 Dose: Not Given Sodium Chloride ([place] Nasal [place] 0.65%) 0 ml EA NARE QIDPRN PRN PRN Reason: Nasal Congestion Throat Lozenges (Cepastat Lozenges) 1 lexa PO Q2H PRN PRN Reason: Sore Throat Zolpidem Tartrate (Ambien) 5 mg PO HSPRN PRN PRN Reason: Insomnia
[2018-06-04] MEDS: Acetaminophen 325 MG TAB PO PRN (14:07)
[2018-06-04] MEDS: Atorvastatin Calcium 20 MG TAB PO SCH (20:53)
[2018-06-05] MEDS: HYDROcodone/Acetaminophen 5/325 mg Tablet PO PRN (02:12)
[2018-06-05] MEDS: MEXILETINE HCL 200 MG PO SCH ×3 (05:00→21:02)
[2018-06-05] MEDS: Calcium Carbonate + Vit D 1 TAB PO SCH (08:57)
[2018-06-05] MEDS: Enoxaparin Sodium 40 MG/0.4 ML SYRINGE SC SCH (08:57)
[2018-06-05] MEDS: Potassium Chloride 10 MEQ TAB PO SCH (08:57)
[2018-06-05] MEDS: Carvedilol 3.125 MG TAB PO SCH ×2 (08:58→17:57)
[2018-06-05] MEDS: Folic Acid 1 MG TAB PO SCH (08:58)
[2018-06-05] MEDS: Ferrous Sulfate 325 MG TAB PO SCH (08:58)
[2018-06-05] MEDS: Aspirin 325 mg Enteric Coated Tablet PO SCH (08:58)
[2018-06-05] MEDS: Senokot S 8.6-50 MG TAB PO SCH ×2 (08:59→21:03)
[2018-06-05] MEDS: Cyanocobalamin (Vitamin B-12) 1,000 MCG TAB PO SCH (08:59)
[2018-06-05] MEDS: Famotidine 20 MG TAB PO SCH (08:59)
[2018-06-05] MEDS: Lisinopril 2.5 MG TAB PO SCH (08:59)
[2018-06-05] MEDS: Acetaminophen 325 MG TAB PO PRN (09:00)
[2018-06-05] MEDS: Furosemide 40 MG TAB PO SCH (09:00)
--- NOTE | 2018-06-05 12:46 | PQF ---
CLINICAL DOCUMENTATION IMPROVEMENT CLARIFICATION FORM: ICD-10 Updated PLEASE DO AN ADDENDUM TO THE PROGRESS NOTE WITH ANY DOCUMENTATION UPDATES OR ADDITIONS AND CARRY THROUGH TO DC SUMMARY. THANK YOU. DATE: 06/05/18 ATTN: Dr. Alfaro Please exercise your independent, professional judgment in responding to the clarification form. Clinical indicators are provided on the bottom of this form for your review Please check appropriate box(s): ____X___ I (concur) with the Nursing Assessment findings as stated below. [ ] Pressure Ulcer: (Stage I: Erythema; Stage II: Partial thickness; Stage III : Full thickness; Stage IV: Necrosis to muscle/bone) [ ] Location: Stage (I to IV): ____(Left____Right____Bilateral____N/A___) [ ] Location: Stage (I to IV): (Left Right___Bilateral___ N/A____) [ ] No pressure ulcer diagnosis [ ] Other diagnosis [ ] Unable to determine In addition, please specify: Present on Admission (POA): [ X ] Yes [ ] No [ ] Unable to determine For continuity of documentation, please document condition throughout progress notes and discharge summary. Thank You. CLINICAL INDICATORS - SIGNS / SYMPTOMS / LABS Nursing Assessment 06/01 @ 1415: Vivienyx Pressure Ulcer. Stage I RISKS: H&P 06/01: 87 yr old, lives at [facility]. Pt has baseline physical deconditioning. Only able to get out of bed with walker from bed to wheelchair. Alzheimer dementia. CKD 3. Acute on chronic systolic CHF. TREATMENT: Skin Interventions per Nursing protocol: Position changes: Q2H in bed, Q1H in chair Skin kept from excessive moisture Pre-ulcer skin changes limited to persistent focal edema (Stage 1) Abrasion, blister, partial thickness skin loss involving epidermis and/or dermis (Stage 2) Full thickness skin loss involving damage or necrosis of SQ tissue. (Stage 3) Necrosis of soft tissue through to underlying muscle, tendon, or bone. (Stage 4) Purple or maroon discolored skin or blood filled blister Thank you, Mariluz (This form is maintained as a part of the permanent medical record) 2015 [employer]. All Rights Reserved Mariluz Carranza RN, BSN [email or web address] Office: [phone] [facility]
--- NOTE | 2018-06-05 15:54 | PDOC.PN ---
- Subjective Encounter Start Date: 06/05/18 Encounter Start Time: 09:00 Pt seen for followup re: acute on chronic combined congestive heart failure. Feels better. Coughing while swallowing meds. - Objective Resuscitation Status - Order Detail: 06/02/18 11:39 Resuscitation Status Routine Resuscitation Status: DNAR: NO Resuscitation Discussed with: Per MD comment, discussed with patient dtr MAR Reviewed: Yes Vital Signs & Weight: Vital Signs (12 hours) Temp Pulse Resp BP BP Pulse Ox 06/05/18 15:28 97.4 F L 76 16 95/53 L 95 06/05/18 11:10 72 20 98/56 L 95 06/05/18 08:59 67 132/60 06/05/18 07:29 97.9 F 67 18 132/60 95 06/05/18 04:00 97.8 F 74 17 99/50 L 98 Weight Weight 185 lb 7 oz I&O: 06/04/18 06/05/18 06/06/18 06:59 06:59 06:59 Intake Total 1150 940 Output Total 350 875 Balance 800 65 Result Diagrams: 06/03/18 05:04 06/04/18 05:04 EKG Reviewed by me: Yes (Tele: NSR) Phys Exam - Physical Examination Constitutional: NAD HEENT: moist MMs Neck: supple Respiratory: clear to auscultation bilateral Cardiovascular: RRR Gastrointestinal: soft Neurological: moves all 4 limbs Psychiatric: normal affect Dx/Plan (1) Acute on chronic combined systolic and diastolic ACC/AHA stage C congestive heart failure Code(s): I50.43 - ACUTE ON CHRONIC COMBINED SYSTOLIC AND DIASTOLIC HRT FAIL Status: Acute Comment: Improving (2) Hypokalemia Code(s): E87.6 - HYPOKALEMIA Status: Acute Comment: replace potassium (3) CKD (chronic kidney disease) stage 3, GFR 30-59 ml/min Code(s): N18.3 - CHRONIC KIDNEY DISEASE, STAGE 3 (MODERATE) Status: Chronic Comment: stable (4) HTN (hypertension) Code(s): I10 - ESSENTIAL (PRIMARY) HYPERTENSION Status: Chronic Comment: controlled - Plan * . Review of Systems - Review of Systems Respiratory: Cough. negative: Shortness of Breath, SOB with Excertion, Pleuritic Pain, Wheezing Cardiovascular: negative: chest pain, palpitations, orthopnea, paroxysmal nocturnal dyspnea, edema, light headedness - Medications/Allergies Allergies/Adverse Reactions: Allergies Allergy/AdvReac Type Severity Reaction Status Date / Time melatonin Allergy Verified 06/01/18 18:32 Medications: Current Medications Acetaminophen (Tylenol) 650 mg PO Q4H PRN PRN Reason: Headache/Fever/Mild Pain (1-3) Last Admin: 06/05/18 09:00 Dose: 650 mg Hydrocodone Bitart/Acetaminophen ([place] 5/325) 1 tab PO Q4H PRN PRN Reason: Moderate Pain (4-6) Last Admin: 06/05/18 02:12 Dose: 1 tab Albuterol/Ipratropium (Duoneb) 3 ml NEB Q4H PRN PRN Reason: Dyspnea/Wheezing/SOB Last Admin: 06/03/18 04:06 Dose: 3 ml Artificial Tears (Tears Renewed 15ml Bottle) 2 drop EA EYE PRN PRN PRN Reason: Dry Eyes Aspirin (Ecotrin) 325 mg PO DAILY [facility] Last Admin: 06/05/18 08:58 Dose: 325 mg Atorvastatin Calcium (Lipitor) 20 mg PO HS [facility] Last Admin: 06/04/18 20:53 Dose: 20 mg Benzonatate (Tessalon) 100 mg PO Q6H PRN PRN Reason: Cough Bisacodyl (Dulcolax) 10 mg PO DAILYPRN PRN PRN Reason: Constipation Calcium Carbonate (Tums) 1,000 mg PO Q4H PRN PRN Reason: Heartburn or Indigestion Calcium/Vitamin D (Caltrate 600 + Vit D) 1 tab PO DAILY [facility] Last Admin: 06/05/18 08:57 Dose: 1 tab Carvedilol (Coreg) 3.125 mg PO BID-[facility] Last Admin: 06/05/18 08:58 Dose: 3.125 mg Cholecalciferol (Vitamin D3) 2,000 units PO DAILY [facility] Last Admin: 06/05/18 08:58 Dose: 2,000 units Clonidine (Catapres) 0.1 mg PO Q4H PRN PRN Reason: SBP > 160____ Cyanocobalamin (Vitamin B-12) 1,000 mcg PO DAILY [facility] Last Admin: 06/05/18 08:59 Dose: 1,000 mcg Enoxaparin Sodium (Lovenox) 40 mg SC 0900 [facility] Last Admin: 06/05/18 08:57 Dose: 40 mg Famotidine (Pepcid) 20 mg PO DAILY [facility] Last Admin: 06/05/18 08:59 Dose: 20 mg Ferrous Sulfate (Feosol) 325 mg PO DAILY [facility] Last Admin: 06/05/18 08:58 Dose: 325 mg Folic Acid (Folvite) 1 mg PO DAILY [facility] Last Admin: 06/05/18 08:58 Dose: 1 mg Furosemide (Lasix) 40 mg PO DAILY [facility] Last Admin: 06/05/18 09:00 Dose: 40 mg Guaifenesin (Robitussin Sf) 200 mg PO Q4H PRN PRN Reason: Cough Last Admin: 06/04/18 21:03 Dose: 200 mg Hydralazine HCl (Apresoline) 10 mg SLOW IVP Q4H PRN PRN Reason: SBP > 180 and HR < 70 Lisinopril (Zestril) 2.5 mg PO DAILY [facility] Last Admin: 06/05/18 08:59 Dose: 2.5 mg Loperamide HCl (Imodium) 2 mg PO PRN PRN PRN Reason: Diarrhea/Loose Stools Loratadine (Claritin) 10 mg PO DAILYPRN PRN PRN Reason: Sinus Symptoms Mineral Oil/White Petrolatum (Eucerin Cream) 0 gm TOP BIDPRN PRN PRN Reason: Dry Skin Nitroglycerin (Nitrostat) 0.4 mg SL Q5MIN PRN PRN Reason: Chest Pain Ondansetron HCl (Zofran) 4 mg IVP Q6H PRN PRN Reason: Nausea/Vomiting Pantoprazole Sodium (Protonix) 40 mg PO DAILY [facility] Last Admin: 06/05/18 08:59 Dose: 40 mg Mexiletine Hcl [ Mexiletine Hcl] 200 Mg 0 each PO Q8HR [facility] Last Admin: 06/05/18 14:27 Dose: 1 each Phenytoin Sodium (Dilantin Er) 300 mg PO DAILY [facility] Last Admin: 06/05/18 08:57 Dose: 300 mg Potassium Chloride (Klor-Con 10) 10 meq PO DAILY [facility] Last Admin: 06/05/18 08:57 Dose: 10 meq Potassium Chloride (K-Dur) 40 meq PO ONE [facility] Senna/Docusate Sodium (Senokot S) 2 tab PO BID PRN PRN Reason: Constipation Senna/Docusate Sodium (Senokot S) 1 tab PO BID [facility] Last Admin: 06/05/18 08:59 Dose: 1 tab Sodium Chloride ([place] Nasal [place] 0.65%) 0 ml EA NARE QIDPRN PRN PRN Reason: Nasal Congestion Sodium Chloride (Flush - Normal Saline) 10 ml IVF Q12HR [facility] Sodium Chloride (Flush - Normal Saline) 10 ml IVF PRN PRN PRN Reason: Saline Flush Throat Lozenges (Cepastat Lozenges) 1 lexa PO Q2H PRN PRN Reason: Sore Throat Zolpidem Tartrate (Ambien) 5 mg PO HSPRN PRN PRN Reason: Insomnia
[2018-06-05] MEDS ORDERED: Potassium Chloride 20 MEQ TAB PO SCH (16:00)
[2018-06-05] MEDS: Atorvastatin Calcium 20 MG TAB PO SCH (21:03)
[2018-06-06] MEDS: MEXILETINE HCL 200 MG PO SCH ×2 (05:19→13:02)
[2018-06-06 07:26] VITALS: TEMP 97.7
[2018-06-06 08:50] LABS: #Basophils 0.1 thou/uL (0.0-0.2); #Eosinphils 0.5 thou/uL (0.0-0.7); #Lymphocytes 1.6 thou/uL (1.20-3.40); #Monocytes 0.6 thou/uL (0.11-0.59); #Neutrophils 5.3 thou/uL (1.40-6.50); %Basophils 0.9 % (0.0-1.0); %Eosinophils 6.4 % (0.0-10.0); %Lymphocytes 19.7 % (21.0-51.0); %Monocytes 7.2 % (0.0-10.0); %Neutrophils 65.8 % (42.0-75.0); Hemoglobin 9.7 g/dL (14.0-18.0); Mean Corpuscular HGB CONC 33.5 g/dL (32.0-36.0); Mean Corpuscular Hemoglobin 34.2 pg (27.0-31.0); Mean Platelet Volume 9.4 fL (7.4-10.4); Platelet Count 243 thou/uL (130-400); RBC Distribution Width 14.7 % (11.5-14.5); Red Blood Cell (RBC) Count 2.84 mill/uL (4.70-6.10)
[2018-06-06] MEDS: Potassium Chloride 10 MEQ TAB PO SCH (08:57)
[2018-06-06] MEDS: Enoxaparin Sodium 40 MG/0.4 ML SYRINGE SC SCH (08:57)
[2018-06-06] MEDS: Aspirin 325 mg Enteric Coated Tablet PO SCH (08:57)
[2018-06-06] MEDS: Lisinopril 2.5 MG TAB PO SCH (08:58)
[2018-06-06] MEDS: Furosemide 40 MG TAB PO SCH (08:59)
[2018-06-06] MEDS: Carvedilol 3.125 MG TAB PO SCH (08:59)
[2018-06-06] MEDS: Calcium Carbonate + Vit D 1 TAB PO SCH (08:59)
[2018-06-06] MEDS: Senokot S 8.6-50 MG TAB PO SCH (08:59)
[2018-06-06] MEDS: Cyanocobalamin (Vitamin B-12) 1,000 MCG TAB PO SCH (08:59)
[2018-06-06] MEDS: Famotidine 20 MG TAB PO SCH (08:59)
[2018-06-06] MEDS: Ferrous Sulfate 325 MG TAB PO SCH (08:59)
[2018-06-06] MEDS: Folic Acid 1 MG TAB PO SCH (08:59)
[2018-06-06 09:05] LABS: Anion Gap 9 mmol/L (10-20); BUN (Urea Nitrogen) 42 mg/dL (8.4-25.7); Calc. Creatinine Clearance 39 mL/min (70-130); Calcium 8.3 mg/dL (7.8-10.44); Carbon Dioxide 27 mmol/L (23-31); Chloride 100 mmol/L (98-107); Estimated GFR-MDRD 41; Glucose 84 mg/dL (83-110); Potassium 4.2 mmol/L (3.5-5.1); Sodium 132 mmol/L (136-145)
[2018-06-06 12:18] VITALS: BP 101/52
--- NOTE | 2018-06-06 12:23 | DIS ---
DATE OF ADMISSION: 06/01/2018 DATE OF DISCHARGE: 06/06/2018 PRIMARY CARE PROVIDER: Shayla Garnett, DO DISCHARGE DIAGNOSES: 1. Acute on chronic combined systolic and diastolic congestive heart failure, [place] Heart Association class IV and ACC/AHA stage C. 2. Hypokalemia. CONDITION OF THE PATIENT ON THE DAY OF DISCHARGE: Stable. I assessed Mr. Suarez on the day of discharge. He denies any chest pain or shortness of breath. Vital signs are stable. S1 and S2 are heard, regular. Lungs are clear to auscultation bilaterally. DISCHARGE MEDICATIONS: He is being discharged home on; 1. Lisinopril 2.5 mg daily, which was started during this hospitalization. 2. His potassium chloride dose was decreased to 10 mEq daily. Otherwise, no change was made to his preadmission home medications as dictated on history and physical exam by Dr. Cardona, on June 01, 2018. HOSPITAL COURSE: Mr. Suarez is a pleasant 87-year-old gentleman, who was admitted to [facility] on June 01, 2018, for congestive heart failure exacerbation. Please refer to Dr. Cardona's history and physical note dated June 01, 2018, for further details. He was started on lisinopril. His creatinine was followed. His creatinine was 1.66 on the day of admission. It trended up to 1.77, before trending down to 1.62 on June 06, 2018. He is advised to have his chem-7 checked in 3 to 5 days' time to ensure stability of creatinine and electrolytes. If renal function is worsening or if the patient is developing hyperkalemia, then consideration can be given to discontinuing lisinopril and/or potassium supplements. Mr. Suarez clinically improved with intravenous diuretics. He is being discharged back to the residential in a stable condition. He had a normal TSH during this hospitalization. On the day of discharge, he has sodium 132, potassium 4.2, creatinine 1.62, blood urea nitrogen 42. White count 8000, hemoglobin 9.7, and platelet count 243,000. Many thanks for allowing me to participate in your patient's care. Please feel free to contact me with any questions or concerns. DISCHARGE DESTINATION: [facility]. TOTAL AMOUNT OF TIME SPENT COORDINATING THIS DISCHARGE: 32 minutes. ADDENDUM: Shortly following discharge, Mr. Suarez was picked up by EMS. The report that shortly after departure is systolic blood pressure dropped into the 70s on manual check. He was therefore brought back to the emergency room, where his blood pressure was rechecked. Without any intervention, his blood pressure was 108/54 and pulse was 70. The patient was asymptomatic. He is being discharge back to the residential. His lisinopril has been stopped. A message was left with residential regarding the same, and paperwork was also modified to reflect this change Job ID: [id number]
--- NOTE | 2018-06-06 14:27 | EKG ---
Test Reason : Blood Pressure : / mmHG Vent. Rate : 075 BPM Atrial Rate : 075 BPM P-R Int : 174 ms QRS Dur : 106 ms QT Int : 426 ms P-R-T Axes : 041 -14 092 degrees QTc Int : 475 ms Sinus rhythm with frequent Premature ventricular complexes Left ventricular hypertrophy with repolarization abnormality Septal infarct , age undetermined Abnormal ECG Confirmed by TAMIKO WU, ROLF ([id number]), film and video editor MONIKA HERNANDEZ ([id number]) on 06/06/2018 2:27:08 PM Referred By: Confirmed By:ROLF MORRISON MD
== END 2018-06-06 13:15 | DRG 291 ==
LOC: ERS 00:28 → ERHOLD 03:08 → 2NO 14:14
PROVIDERS: ADMIT Hospitalist; ATTEND Hospitalist
DX: I13.0 Hypertensive heart and chronic kidney disease with heart failure and stage 1 through stage 4 chronic kidney disease, or unspecified chronic kidney disease (principal); I50.33 Acute on chronic diastolic (congestive) heart failure; I24.8 Other forms of acute ischemic heart disease; N18.3 Chronic kidney disease, stage 3 (moderate); L89.151 Pressure ulcer of sacral region, stage 1; I35.0 Nonrheumatic aortic (valve) stenosis; I25.5 Ischemic cardiomyopathy; G30.9 Alzheimer's disease, unspecified; F02.80 Dementia in other diseases classified elsewhere, unspecified severity, without behavioral disturbance, psychotic disturbance, mood disturbance, and anxiety; K59.09 Other constipation; K21.9 Gastro-esophageal reflux disease without esophagitis; G40.909 Epilepsy, unspecified, not intractable, without status epilepticus; Z87.440 Personal history of urinary (tract) infections; E55.9 Vitamin D deficiency, unspecified; E78.5 Hyperlipidemia, unspecified; M81.0 Age-related osteoporosis without current pathological fracture; N40.0 Benign prostatic hyperplasia without lower urinary tract symptoms; Z79.899 Other long term (current) drug therapy; Z79.82 Long term (current) use of aspirin; Z88.8 Allergy status to other drugs, medicaments and biological substances; R53.81 Other malaise; I49.9 Cardiac arrhythmia, unspecified; E87.6 Hypokalemia; D53.9 Nutritional anemia, unspecified
CPT/HCPCS: 36415; 71045; 80048; 80053; 81003; 81015; 82550; 82553; 83690; 83735; 83880; 84443; 84484; 84550; 85025; 90471; 90670; 93005; 94640; 94760; 96374; 96376; G0009; G8978-GP-CL; G8979-GP-CJ; G8987-GO-CM; G8988-GO-CK; G8996-GN-CJ; G8997-GN-CI; J1650; J1940; J3480; J7611; J7620

== ENCOUNTER 2018-10-19 09:15 | Inpatient (IN) | payer MEDICARE, OTHER ==
[2018-10-19 09:54] LABS: #Basophils 0.1 thou/uL (0.0-0.2); #Eosinphils 0.1 thou/uL (0.0-0.7); #Monocytes 0.6 thou/uL (0.11-0.59); #Neutrophils 8.5 thou/uL (1.40-6.50); %Basophils 0.6 % (0.0-1.0); %Eosinophils 1.3 % (0.0-10.0); %Monocytes 6.2 % (0.0-10.0); %Neutrophils 81.8 % (42.0-75.0); Hemoglobin 8.8 g/dL (14.0-18.0); Mean Platelet Volume 8.3 fL (7.4-10.4); Platelet Count 255 thou/uL (130-400); RBC Distribution Width 15.6 % (11.5-14.5); Red Blood Cell (RBC) Count 2.58 mill/uL (4.70-6.10); White Blood Cell (WBC) Count 10.3 thou/uL (4.8-10.8)
[2018-10-19 10:09] LABS: ALT (SGPT) 10 U/L (8-55); AST (SGOT) 14 U/L (5-34); Albumin 3.5 g/dL (3.4-4.8); Alkaline Phosphatase 125 U/L (40-150); Anion Gap 13 mmol/L (10-20); BUN (Urea Nitrogen) 27 mg/dL (8.4-25.7); Bilirubin, Total 0.5 mg/dL (0.2-1.2); Calc. Creatinine Clearance 0 mL/min (70-130); Calcium 8.3 mg/dL (7.8-10.44); Carbon Dioxide 26 mmol/L (23-31); Chloride 100 mmol/L (98-107); Estimated GFR-MDRD 42; Globulin 2.7 g/dL (2.4-3.5); Glucose 116 mg/dL (83-110); Protein, Total 6.2 g/dL (5.8-8.1); Sodium 135 mmol/L (136-145)
[2018-10-19 10:11] LABS: MDiff Complete? YES; Macrocytosis SLIGHT = 6-15 cells (100X) (0-5/hpf); Platelet Morphology Comment Appears Adequate; Polychromasia SLIGHT = 2-3 cells (100X) (0-2/hpf)
--- NOTE | 2018-10-19 10:19 | RAD ---
PORTABLE CHEST: HISTORY: Hypotension. Cough. FINDINGS: Heart size is enlarged. There are atherosclerotic changes of the aorta. Chronic lung changes are se en. IMPRESSION: Cardiomegaly with chronic lung change. No acute findings. POS: [facility]
[2018-10-19 10:33] LABS: Bilirubin Negative (Negative); Blood, Urine Negative (Negative); Clarity CLEAR (Clear); Glucose, Urine (Dipstick) Negative (Negative); Leukocyte Negative (Negative); Nitrite Negative (Negative); Protein, Urine (Dipstick) 30 mg/dL (Neg-Trace); Specific Gravity, Urine 1.019 (1.002-1.036); Urobilinogen 0.2 mg/dL (0.2-1.0)
[2018-10-19 10:35] LABS: Bacteria/HPF None Seen HPF (None Seen); Hyaline Casts/LPF 7-10 HYALINE CAST LPF (0-3 Hyaline); Pathc Cast-AUWi Flag 2.17 (0-2.49); Squamous Epithelial 0-3 HPF (0-3); WBC/HPF 0-3 HPF (0-3)
[2018-10-19 10:37] LABS: CKMB 2.9 ng/mL (0-6.6)
[2018-10-19] MEDS ORDERED: Furosemide 40 MG/4 ML VIAL ONE (11:54)
[2018-10-19] MEDS ORDERED: Aspirin 325 MG TAB ONE (11:54)
[2018-10-19] MEDS ORDERED: Ondansetron ODT 4 MG TAB PO PRN (13:59)
[2018-10-19 14:29] LABS: CKMB 3.1 ng/mL (0-6.6)
[2018-10-19] MEDS ORDERED: Albuterol Sulfate 1.25 MG/3 ML NEB NEB PRN (14:30)
--- NOTE | 2018-10-19 15:17 | HP ---
REASON FOR ADMISSION: Referred to [facility] by [facility] Emergency Department for heart failure. PRIMARY CARE PHYSICIAN: Shayla Garnett DO HISTORY OF PRESENT ILLNESS: The patient's daughter is at bedside. The patient states he is okay. Daughter says he has had a change of mentation. He has been somewhat more short of breath, has a bad cough, has been having swelling in his legs. He was seen and evaluated by the emergency room doctor and referred. PAST MEDICAL HISTORY: Pertinent for chronic congestive heart failure with cardiomyopathy with an EF of 20% to 25%, severe aortic stenosis, chronic renal failure, dementia, hypertension, anemia secondary to chronic kidney disease, and seizure disorder. CURRENT MEDICATIONS: 1. Lasix has been 40 mg twice a day recently, was at 20 mg a day. 2. Aspirin 325 mg a day. 3. Potassium 10 mEq a day. 4. Calcium with D. 5. Mexiletine 200 mg every 8 hours. 6. Ferrous sulfate 325 mg twice a day. 7. Dilantin 300 mg p.o. b.i.d. 8. Coreg one half of 3.125 mg p.o. b.i.d. 9. Vitamin D3. 10. Spironolactone 25 mg a day. ALLERGIES: MELATONIN. PAST SURGICAL HISTORY: Right femur fracture, required surgery and cardiac ablation for PVCs. FAMILY HISTORY: No family history of coronary artery disease or stroke. SOCIAL HISTORY: The patient is demented, moved from his longtime residence a couple of years ago to [facility]. No tobacco, alcohol, or illicit drug use. REVIEW OF SYSTEMS: Unobtainable due to the gentleman's mental status being diminished. PHYSICAL EXAMINATION: VITAL SIGNS: Blood pressure is 105/60, pulse is 86 and irregular, respirations are 22, and O2 saturation has varied from 87% to 95% on room air while I have been with him. When I have asked him how he is doing, he says okay. He does not know where he is or what year it is. He does know his name. HEAD, EYES, EARS, NOSE, AND THROAT: Revealed pupils round, reactive. Extraocular movements are intact. Sclerae are white. Tympanic membranes clear. Nose is clear. Oral mucous membranes are wet. NECK: No jugular venous distention, adenopathy, or thyromegaly. CHEST: Clear to percussion. Some faint rales posteriorly, but not impressive, otherwise clear to auscultation. HEART: Irregular rhythm. Honking 3/6 systolic murmur. ABDOMEN: Mildly protuberant. No tenderness. No hepatosplenomegaly, masses, or bruit. Bowel sounds are present. EXTREMITIES: 2+ edema. No cyanosis or clubbing. Pulses; carotid, radial, and femoral pulses are symmetric. Pedal pulses are significantly diminished by the edema. SKIN: Warm and dry. HEME/LYMPH: Reveals no tender or swollen lymph nodes in the axilla, inguinal, or cervical area. No petechial hemorrhages. NEUROLOGIC: Moves all four extremities. Cranial nerves 2 through 12 intact. IMAGING STUDIES: EKG revealed a significantly staticky baseline with an irregular rhythm and nonspecific ST-T abnormality. On the monitor, I was able to ascertain that he was in sinus rhythm with PVCs. Both were reviewed by me. Chest x-ray reveals cardiomegaly, appears to have a small bilateral pleural effusion, and appears to have some pulmonary vascular congestion in the lower lobes, reviewed by me. LABORATORY DATA: Hemoglobin is 8.8 with. White count is 10.3 and platelet count is 235,000. Comprehensive metabolic profile shows a creatinine of 1.58, BUN of 27, and sodium 135. BNP is elevated at 3000 plus and the troponin is 0.431. ADMITTING DIAGNOSES: 1. Acute on chronic systolic heart failure. 2. Severe aortic stenosis. 3. Altered mental status. 4. Seizure disorder. 5. Chronic kidney disease, stage 3. 6. Hypertension. PLAN: I have discussed the patient at length with his daughter. He improves with IV Lasix and I am putting him in on an observation basis for diuresis over the next 24 hours, he will be monitored and decision made then on continuing hospital care or discharge. He is DNAR. Job ID: [id number] [facility]
[2018-10-19] MEDS ORDERED: Sodium Chloride 0.9% 10 ML ONE (17:15)
[2018-10-19 17:32] LABS: CKMB 3.2 ng/mL (0-6.6)
[2018-10-19] MEDS: Furosemide 40 MG/4 ML VIAL SLOW IVP SCH (17:38)
[2018-10-19] MEDS: MEXILETINE HCL 200 MG PO SCH ×2 (20:47→20:51)
[2018-10-20 05:30] LABS: #Basophils 0.1 thou/uL (0.0-0.2); #Eosinphils 0.3 thou/uL (0.0-0.7); #Lymphocytes 1.2 thou/uL (1.20-3.40); #Monocytes 0.7 thou/uL (0.11-0.59); #Neutrophils 6.3 thou/uL (1.40-6.50); %Eosinophils 3.6 % (0.0-10.0); %Lymphocytes 13.9 % (21.0-51.0); %Neutrophils 73.6 % (42.0-75.0); Hemoglobin 8.7 g/dL (14.0-18.0); Mean Corpuscular HGB CONC 32.8 g/dL (32.0-36.0); Mean Corpuscular Hemoglobin 34.5 pg (27.0-31.0); Mean Platelet Volume 8.2 fL (7.4-10.4); Platelet Count 210 thou/uL (130-400); RBC Distribution Width 15.6 % (11.5-14.5); Red Blood Cell (RBC) Count 2.52 mill/uL (4.70-6.10); White Blood Cell (WBC) Count 8.6 thou/uL (4.8-10.8)
[2018-10-20 05:41] LABS: Anion Gap 14 mmol/L (10-20); BUN (Urea Nitrogen) 27 mg/dL (8.4-25.7); Calc. Creatinine Clearance 42 mL/min (70-130); Calcium 8.3 mg/dL (7.8-10.44); Carbon Dioxide 26 mmol/L (23-31); Chloride 101 mmol/L (98-107); Estimated GFR-MDRD 47; Glucose 106 mg/dL (83-110); Potassium 3.5 mmol/L (3.5-5.1); Sodium 137 mmol/L (136-145)
[2018-10-20] MEDS: MEXILETINE HCL 200 MG PO SCH ×3 (05:46→20:40)
[2018-10-20] MEDS: Furosemide 40 MG/4 ML VIAL SLOW IVP SCH ×2 (05:46→13:53)
[2018-10-20] MEDS ORDERED: Enoxaparin Sodium 30 MG/0.3 ML SYRINGE SC SCH (09:00)
[2018-10-20] MEDS: Aspirin 325 mg Enteric Coated Tablet PO SCH (09:55)
[2018-10-20] MEDS: cefTRIAXone\\ROCEPHIN 1 GM in Sodium Chloride 0.9% 100 ML IVPB SCH (13:53)
[2018-10-20] MEDS: Azithromycin 500 MG in Sodium Chloride 0.9% 250 ML 250 ML IVPB SCH (13:54)
[2018-10-20 14:15] LABS: Lactic Acid 1.1 mmol/L (0.5-2.2)
[2018-10-20 14:17] LABS: CKMB 1.4 ng/mL (0-6.6)
--- NOTE | 2018-10-20 19:12 | PDOC.PN ---
- Subjective Encounter Start Date: 10/20/18 Encounter Start Time: 13:09 Subjective: Patient minimally verbal but able to respond to questions. -: Denies any complaints, however daughter states he has had a persistent -: cough, worsening since yesterday. Has been coughing up green sputum. Unable to bring it up most times and she notices rattling in his chest. He has long standing weakness in his neck, since fall in August. Was not found to have any fractures but since then has noted persistent deterioration in his medical lead. She has noted very minimal improvement since yesterday. Concerned mainly because he is more lethargic than usual. - Objective Resuscitation Status - Order Detail: 10/19/18 13:56 Resuscitation Status Routine Resuscitation Status: DNAR: NO Resuscitation Discussed with: daughter Ani Grayson Vital Signs & Weight: Vital Signs (12 hours) Temp Pulse Resp BP BP Pulse Ox 10/20/18 18:33 87 18 94 L 10/20/18 16:00 97.3 F L 81 18 113/58 L 95 10/20/18 14:09 88 16 95 10/20/18 08:00 98.4 F 88 18 111/58 L 111/58 L 98 Weight Admit Weight 178 lb 9.6 oz Weight 180 lb 1.6 oz I&O: 10/19/18 10/20/18 10/21/18 06:59 06:59 06:59 Intake Total 104 480 Balance 104 480 Result Diagrams: 10/20/18 05:11 10/20/18 05:11 Phys Exam - Physical Examination Constitutional: NAD HEENT: PERRLA, oral pharynx no lesions MMs are dry. Neck: supple no tenderness. Able to straighten neck but continues to favor the rt side vesicular breath sounds present Cardiovascular: RRR Gastrointestinal: soft, positive bowel sounds Musculoskeletal: no edema Neurological: normal sensation, moves all 4 limbs Psychiatric: A&O x 3 Deviation from normal: appears lethargic, able to open eyes and follow some commands quickly closes eyes again and grunts in response at times Dx/Plan (1) Respiratory tract infection Code(s): J98.8 - OTHER SPECIFIED RESPIRATORY DISORDERS Status: Acute (2) Acute on chronic combined systolic and diastolic ACC/AHA stage C congestive heart failure Code(s): I50.43 - ACUTE ON CHRONIC COMBINED SYSTOLIC AND DIASTOLIC HRT FAIL Status: Acute Comment: Improving (3) Elevated troponin Code(s): R74.8 - ABNORMAL LEVELS OF OTHER SERUM ENZYMES Status: Acute Comment: due to demand ischemia (4) Aortic stenosis Code(s): I35.0 - NONRHEUMATIC AORTIC (VALVE) STENOSIS Status: Chronic Comment: No Intervention due to comorbitties. (5) Dementia Code(s): F03.90 - UNSPECIFIED DEMENTIA WITHOUT BEHAVIORAL DISTURBANCE Status: Chronic (6) HTN (hypertension) Code(s): I10 - ESSENTIAL (PRIMARY) HYPERTENSION Status: Chronic Comment: controlled - Plan cont current plan of care Patient started on Abx for suspected respiratory tract infection. -: continue to monitor WCC. He is at risk for aspiration. -: Is now on mechanically soft diet. Duo nebs scheduled. -: Repeat labs including trop and BNP. -: Convert to inpatient as per discussion with Dr. Powell. * .
[2018-10-20] MEDS ORDERED: guaiFENesin 200 MG TAB PO PRN (19:19)
[2018-10-21] MEDS: MEXILETINE HCL 200 MG PO SCH ×3 (06:11→21:00)
[2018-10-21] MEDS: Furosemide 40 MG/4 ML VIAL SLOW IVP SCH ×2 (06:11→15:48)
[2018-10-21] MEDS: Aspirin 325 mg Enteric Coated Tablet PO SCH (09:08)
[2018-10-21] MEDS: Enoxaparin Sodium 40 MG/0.4 ML SYRINGE SC SCH (09:08)
--- NOTE | 2018-10-21 11:28 | PDOC.PN ---
- Subjective Encounter Start Date: 10/21/18 Encounter Start Time: 07:00 Patient seen and examined. No new complaints. No overnight events - Objective Resuscitation Status - Order Detail: 10/19/18 13:56 Resuscitation Status Routine Resuscitation Status: DNAR: NO Resuscitation Discussed with: daughter Ani SULTANA Reviewed: Yes Vital Signs & Weight: Vital Signs (12 hours) Temp Pulse Resp BP Pulse Ox 10/21/18 10:51 88 20 10/21/18 08:00 97 10/21/18 07:55 98.4 F 88 18 114/66 97 10/21/18 07:27 99 10/21/18 07:24 81 18 99 10/21/18 04:00 97.9 F 83 20 111/59 L 94 L 10/21/18 01:34 81 20 92 L Weight Admit Weight 178 lb 9.6 oz Weight 176 lb 8 oz I&O: 10/20/18 10/21/18 10/22/18 06:59 06:59 06:59 Intake Total 104 780 Balance 104 780 Result Diagrams: 10/20/18 05:11 10/20/18 05:11 EKG Reviewed by me: Yes Phys Exam - Physical Examination Constitutional: NAD HEENT: PERRLA, moist MMs, sclera anicteric Neck: no JVD, supple Respiratory: no wheezing, no rhonchi coarse sound+ Cardiovascular: RRR, no significant murmur, no rub Gastrointestinal: soft, non-tender, no distention, positive bowel sounds Musculoskeletal: no edema, pulses present Neurological: non-focal, normal sensation Lymphatic: no nodes Psychiatric: normal affect Skin: no rash, normal turgor Dx/Plan (1) Acute on chronic combined systolic and diastolic ACC/AHA stage C congestive heart failure Code(s): I50.43 - ACUTE ON CHRONIC COMBINED SYSTOLIC AND DIASTOLIC HRT FAIL Status: Acute Comment: (2) Type [address] elevation Code(s): I21.A1 - MYOCARDIAL INFARCTION TYPE 2 Status: Acute (3) Alzheimer's dementia Code(s): G30.9 - ALZHEIMER'S DISEASE, UNSPECIFIED; F02.80 - DEMENTIA IN OTH DISEASES CLASSD ELSWHR W/O BEHAVRL DISTURB Status: Chronic (4) BPH (benign prostatic hyperplasia) Code(s): N40.0 - BENIGN PROSTATIC HYPERPLASIA WITHOUT LOWER URINRY TRACT SYMP Status: Chronic (5) CKD (chronic kidney disease) stage 3, GFR 30-59 ml/min Code(s): N18.3 - CHRONIC KIDNEY DISEASE, STAGE 3 (MODERATE) Status: Chronic Comment: stable (6) GERD (gastroesophageal reflux disease) Code(s): K21.9 - GASTRO-ESOPHAGEAL REFLUX DISEASE WITHOUT ESOPHAGITIS Status: Chronic (7) HTN (hypertension) Code(s): I10 - ESSENTIAL (PRIMARY) HYPERTENSION Status: Chronic Comment: controlled (8) Macrocytic anemia Code(s): D53.9 - NUTRITIONAL ANEMIA, UNSPECIFIED Status: Chronic (9) Osteoporosis Code(s): M81.0 - AGE-RELATED OSTEOPOROSIS W/O CURRENT PATHOLOGICAL FRACTURE Status: Chronic (10) Seizure disorder Code(s): G40.909 - EPILEPSY, UNSP, NOT INTRACTABLE, WITHOUT STATUS EPILEPTICUS Status: Chronic (11) Severe aortic stenosis by prior echocardiogram Code(s): I35.0 - NONRHEUMATIC AORTIC (VALVE) STENOSIS Status: Chronic - Plan cont current plan of care, continue antibiotics, respiratory therapy * continue rocephin and azithromycin * home meds reconciled * continue lasix * supportive care * medication reviewed as below * symptomatic treatment. Review of Systems - Review of Systems ENT: negative: Ear Pain, Ear Discharge, Nose Pain, Nose Discharge, Nose Congestion, Mouth Pain, Mouth Swelling, Throat Pain, Throat Swelling, Other Respiratory: Cough, Shortness of Breath, Sputum. negative: Dry, Hemoptysis, SOB with Excertion, Pleuritic Pain, Wheezing Cardiovascular: negative: chest pain, palpitations, orthopnea, paroxysmal nocturnal dyspnea, edema, light headedness, other Gastrointestinal: negative: Nausea, Vomiting, Abdominal Pain, Diarrhea, Constipation, Melena, Hematochezia, Other Genitourinary: negative: Dysuria, Frequency, Incontinence, Hematuria, Retention , Other Musculoskeletal: negative: Neck Pain, Shoulder Pain, Arm Pain, Back Pain, Hand Pain, Leg Pain, Foot Pain, Other Skin: negative: Rash, Lesions, Isaac, Bruising, Other - Medications/Allergies Allergies/Adverse Reactions: Allergies Allergy/AdvReac Type Severity Reaction Status Date / Time melatonin Allergy Verified 10/19/18 18:32 Medications: Current Medications Acetaminophen (Tylenol) 650 mg PO Q4H PRN PRN Reason: Headache/Fever/Mild Pain (1-3) Albuterol Sulfate (Albuterol Sulfate) 1.25 mg NEB A2IT-TQ PRN PRN Reason: SOB &/or Wheezing Last Admin: 10/19/18 18:08 Dose: 1.25 mg Albuterol/Ipratropium (Duoneb) 3 ml NEB [id number] [facility] Last Admin: 10/21/18 10:51 Dose: 3 ml Aspirin (Ecotrin) 325 mg PO DAILY [facility] Last Admin: 10/21/18 09:08 Dose: 325 mg Calcium/Vitamin D (Caltrate 600 + Vit D) 1 tab PO DAILY [facility] Carvedilol (Coreg) 3.125 mg PO BID [facility] Cholecalciferol (Vitamin D3) 2,000 units PO DAILY [facility] Cyanocobalamin (Vitamin B-12) 1,000 mcg PO DAILY [facility] Enoxaparin Sodium (Lovenox) 40 mg SC 0900 [facility] Last Admin: 10/21/18 09:08 Dose: 40 mg Ferrous Sulfate (Feosol) 325 mg PO DAILY [facility] Folic Acid (Folvite) 1 mg PO DAILY [facility] Furosemide (Lasix) 40 mg SLOW IVP 0600,1400 [facility] Last Admin: 10/21/18 06:11 Dose: 40 mg Guaifenesin (Organ-I Nr) 400 mg PO Q4H PRN PRN Reason: Cough Guaifenesin (Mucinex) 600 mg PO Q12HR [facility] Azithromycin 500 mg/ Sodium (Chloride) 250 mls @ 250 mls/hr IVPB Q24HR [facility] Last Admin: 10/20/18 13:54 Dose: 250 mls Ceftriaxone Sodium 1 gm/ (Sodium Chloride) 100 mls @ 200 mls/hr IVPB Q24HR [facility] Last Admin: 10/20/18 13:53 Dose: 100 mls Ondansetron HCl (Zofran Odt) 4 mg PO Q6H PRN PRN Reason: Nausea/Vomiting Mexiletine Hcl [ Mexiletine Hcl] 200 Mg 1 each PO Q8HR [facility] Last Admin: 10/21/18 06:11 Dose: 1 each Phenytoin Sodium (Dilantin Er) 300 mg PO DAILY [facility] Last Admin: 10/21/18 09:08 Dose: 300 mg Polyethylene Glycol (Miralax) 17 gm PO DAILY [facility] Potassium Chloride (Klor-Con 10) 10 meq PO DAILY [facility] Senna/Docusate Sodium (Senokot S) 1 tab PO BID [facility] Sodium Chloride (Flush - Normal Saline) 10 ml IVF Q12HR [facility] Last Admin: 10/21/18 09:09 Dose: 10 ml Sodium Chloride (Flush - Normal Saline) 10 ml IVF PRN PRN PRN Reason: Saline Flush Spironolactone (Aldactone) 25 mg PO DAILY [facility]
[2018-10-21] MEDS: Azithromycin 500 MG in Sodium Chloride 0.9% 250 ML 250 ML IVPB SCH (13:35)
[2018-10-21] MEDS: cefTRIAXone\\ROCEPHIN 1 GM in Sodium Chloride 0.9% 100 ML IVPB SCH (15:58)
[2018-10-21] MEDS: Senokot S 8.6-50 MG TAB PO SCH (21:00)
[2018-10-21] MEDS: Carvedilol 3.125 MG TAB PO SCH (21:00)
[2018-10-21] MEDS: guaiFENesin ER 600 MG TAB PO SCH (21:00)
[2018-10-22] MEDS: MEXILETINE HCL 200 MG PO SCH ×3 (05:24→21:16)
[2018-10-22] MEDS: Furosemide 40 MG/4 ML VIAL SLOW IVP SCH ×2 (05:24→14:58)
[2018-10-22 05:54] LABS: #Basophils 0.1 thou/uL (0.0-0.2); #Eosinphils 0.4 thou/uL (0.0-0.7); #Lymphocytes 1.3 thou/uL (1.20-3.40); #Monocytes 0.5 thou/uL (0.11-0.59); #Neutrophils 4.6 thou/uL (1.40-6.50); %Basophils 1.2 % (0.0-1.0); %Eosinophils 5.5 % (0.0-10.0); %Lymphocytes 18.8 % (21.0-51.0); %Monocytes 7.5 % (0.0-10.0); %Neutrophils 67.1 % (42.0-75.0); Hemoglobin 8.9 g/dL (14.0-18.0); Mean Corpuscular HGB CONC 32.2 g/dL (32.0-36.0); Mean Corpuscular Hemoglobin 33.9 pg (27.0-31.0); Mean Platelet Volume 8.8 fL (7.4-10.4); Platelet Count 258 thou/uL (130-400); RBC Distribution Width 15.8 % (11.5-14.5); Red Blood Cell (RBC) Count 2.64 mill/uL (4.70-6.10); White Blood Cell (WBC) Count 6.9 thou/uL (4.8-10.8)
[2018-10-22 06:11] LABS: ALT (SGPT) Less than 7 U/L (8-55); AST (SGOT) 12 U/L (5-34); Albumin 3.1 g/dL (3.4-4.8); Alkaline Phosphatase 111 U/L (40-150); Anion Gap 13 mmol/L (10-20); BUN (Urea Nitrogen) 31 mg/dL (8.4-25.7); Bilirubin, Total 0.3 mg/dL (0.2-1.2); Calc. Creatinine Clearance 39 mL/min (70-130); Calcium 8.3 mg/dL (7.8-10.44); Carbon Dioxide 27 mmol/L (23-31); Chloride 102 mmol/L (98-107); Estimated GFR-MDRD 44; Globulin 2.9 g/dL (2.4-3.5); Glucose 96 mg/dL (83-110); Potassium 3.4 mmol/L (3.5-5.1); Sodium 139 mmol/L (136-145)
[2018-10-22] MEDS ORDERED: Potassium Chloride 20 MEQ/100 ML PREMIX BAG IVPB SCH (07:45)
[2018-10-22] MEDS ORDERED: Potassium Chloride 20 MEQ in Premix Bag 1 BAG IVPB SCH (08:00)
[2018-10-22] MEDS ORDERED: Non-Formulary Item 1 EACH (Calcium Carbonate/Vitamin D3 [Calcium 600 + Vitamin D] 1 TABLE PO SCH (09:00)
[2018-10-22] MEDS ORDERED: Non-Formulary Item 1 EACH (Potassium Chloride [Potassium Chloride] 10 MEQ) PO SCH (09:00)
[2018-10-22] MEDS ORDERED: Non-Formulary Item 1 EACH (Cholecalciferol (Vitamin D3) [D3-2000] 2,000 UNIT) PO SCH (09:00)
[2018-10-22] MEDS ORDERED: Non-Formulary Item 1 EACH (Ferrous Sulfate [Ferrous Sulfate] 325 MG) PO SCH (09:00)
--- NOTE | 2018-10-22 09:32 | PDOC.PN ---
- Subjective Encounter Start Date: 10/22/18 Encounter Start Time: 07:30 Patient seen and examined. No new complaints. No overnight events - Objective Resuscitation Status - Order Detail: 10/19/18 13:56 Resuscitation Status Routine Resuscitation Status: DNAR: NO Resuscitation Discussed with: daughter Ani SULTANA Reviewed: Yes Vital Signs & Weight: Vital Signs (12 hours) Temp Pulse Resp BP Pulse Ox 10/22/18 07:50 99 10/22/18 07:47 63 22 H 99 10/22/18 07:30 97.5 F L 79 20 105/62 94 L 10/22/18 04:23 98.6 F 80 18 112/59 L 93 L 10/22/18 03:38 80 16 10/21/18 22:57 84 16 Weight Admit Weight 178 lb 9.6 oz Weight 172 lb 14.4 oz I&O: 10/21/18 10/22/18 10/23/18 06:59 06:59 06:59 Intake Total 780 1020 Balance 780 1020 Result Diagrams: 10/22/18 05:05 10/22/18 05:05 EKG Reviewed by me: Yes Phys Exam - Physical Examination Constitutional: NAD HEENT: PERRLA, moist MMs, sclera anicteric Neck: no JVD, supple Respiratory: no wheezing, no rhonchi Cardiovascular: RRR, no rub SM+ Gastrointestinal: soft, non-tender, no distention, positive bowel sounds Musculoskeletal: no edema, pulses present Neurological: non-focal, normal sensation Lymphatic: no nodes Psychiatric: normal affect Skin: no rash, normal turgor Dx/Plan (1) Acute on chronic combined systolic and diastolic ACC/AHA stage C congestive heart failure Code(s): I50.43 - ACUTE ON CHRONIC COMBINED SYSTOLIC AND DIASTOLIC HRT FAIL Status: Acute Comment: (2) Type [address] elevation Code(s): I21.A1 - MYOCARDIAL INFARCTION TYPE 2 Status: Acute (3) Alzheimer's dementia Code(s): G30.9 - ALZHEIMER'S DISEASE, UNSPECIFIED; F02.80 - DEMENTIA IN OTH DISEASES CLASSD ELSWHR W/O BEHAVRL DISTURB Status: Chronic (4) BPH (benign prostatic hyperplasia) Code(s): N40.0 - BENIGN PROSTATIC HYPERPLASIA WITHOUT LOWER URINRY TRACT SYMP Status: Chronic (5) CKD (chronic kidney disease) stage 3, GFR 30-59 ml/min Code(s): N18.3 - CHRONIC KIDNEY DISEASE, STAGE 3 (MODERATE) Status: Chronic Comment: stable (6) GERD (gastroesophageal reflux disease) Code(s): K21.9 - GASTRO-ESOPHAGEAL REFLUX DISEASE WITHOUT ESOPHAGITIS Status: Chronic (7) HTN (hypertension) Code(s): I10 - ESSENTIAL (PRIMARY) HYPERTENSION Status: Chronic Comment: controlled (8) Macrocytic anemia Code(s): D53.9 - NUTRITIONAL ANEMIA, UNSPECIFIED Status: Chronic (9) Osteoporosis Code(s): M81.0 - AGE-RELATED OSTEOPOROSIS W/O CURRENT PATHOLOGICAL FRACTURE Status: Chronic (10) Seizure disorder Code(s): G40.909 - EPILEPSY, UNSP, NOT INTRACTABLE, WITHOUT STATUS EPILEPTICUS Status: Chronic (11) Severe aortic stenosis by prior echocardiogram Code(s): I35.0 - NONRHEUMATIC AORTIC (VALVE) STENOSIS Status: Chronic - Plan cont current plan of care, continue antibiotics, respiratory therapy * continue rocephin and azithromycin * continue lasix * medication reviewed as below * symptomatic treatment * pt has clinical improvement. Review of Systems - Review of Systems ENT: negative: Ear Pain, Ear Discharge, Nose Pain, Nose Discharge, Nose Congestion, Mouth Pain, Mouth Swelling, Throat Pain, Throat Swelling, Other Respiratory: Cough. negative: Dry, Shortness of Breath, Hemoptysis, SOB with Excertion, Pleuritic Pain, Sputum, Wheezing Cardiovascular: negative: chest pain, palpitations, orthopnea, paroxysmal nocturnal dyspnea, edema, light headedness, other Gastrointestinal: negative: Nausea, Vomiting, Abdominal Pain, Diarrhea, Constipation, Melena, Hematochezia, Other Genitourinary: negative: Dysuria, Frequency, Incontinence, Hematuria, Retention , Other Musculoskeletal: negative: Neck Pain, Shoulder Pain, Arm Pain, Back Pain, Hand Pain, Leg Pain, Foot Pain, Other Skin: negative: Rash, Lesions, Isaac, Bruising, Other - Medications/Allergies Allergies/Adverse Reactions: Allergies Allergy/AdvReac Type Severity Reaction Status Date / Time melatonin Allergy Verified 10/19/18 18:32 Medications: Current Medications Acetaminophen (Tylenol) 650 mg PO Q4H PRN PRN Reason: Headache/Fever/Mild Pain (1-3) Albuterol Sulfate (Albuterol Sulfate) 1.25 mg NEB [id number] PRN PRN Reason: SOB &/or Wheezing Last Admin: 10/19/18 18:08 Dose: 1.25 mg Albuterol/Ipratropium (Duoneb) 3 ml NEB [id number] [facility] Last Admin: 10/22/18 07:47 Dose: 3 ml Aspirin (Ecotrin) 325 mg PO DAILY [facility] Last Admin: 10/21/18 09:08 Dose: 325 mg Calcium/Vitamin D (Caltrate 600 + Vit D) 1 tab PO DAILY [facility] Carvedilol (Coreg) 3.125 mg PO BID [facility] Last Admin: 10/21/18 21:00 Dose: 3.125 mg Cholecalciferol (Vitamin D3) 2,000 units PO DAILY [facility] Cyanocobalamin (Vitamin B-12) 1,000 mcg PO DAILY [facility] Enoxaparin Sodium (Lovenox) 40 mg SC 0900 [facility] Last Admin: 10/21/18 09:08 Dose: 40 mg Ferrous Sulfate (Feosol) 325 mg PO DAILY [facility] Folic Acid (Folvite) 1 mg PO DAILY [facility] Furosemide (Lasix) 40 mg SLOW IVP 0600,1400 [facility] Last Admin: 10/22/18 05:24 Dose: 40 mg Guaifenesin (Organ-I Nr) 400 mg PO Q4H PRN PRN Reason: Cough Guaifenesin (Mucinex) 600 mg PO Q12HR [facility] Last Admin: 10/21/18 21:00 Dose: 600 mg Azithromycin 500 mg/ Sodium (Chloride) 250 mls @ 250 mls/hr IVPB Q24HR [facility] Last Admin: 10/21/18 13:35 Dose: 250 mls Ceftriaxone Sodium 1 gm/ (Sodium Chloride) 100 mls @ 200 mls/hr IVPB Q24HR [facility] Last Admin: 10/21/18 15:58 Dose: 100 mls Potassium Chloride 20 meq/ (Device) 100 mls @ 50 mls/hr IVPB 0800 [facility] Stop: 10/22/18 11:00 Ondansetron HCl (Zofran Odt) 4 mg PO Q6H PRN PRN Reason: Nausea/Vomiting Mexiletine Hcl [ Mexiletine Hcl] 200 Mg 1 each PO Q8HR [facility] Last Admin: 10/22/18 05:24 Dose: 1 each Phenytoin Sodium (Dilantin Er) 300 mg PO DAILY [facility] Last Admin: 10/21/18 09:08 Dose: 300 mg Polyethylene Glycol (Miralax) 17 gm PO DAILY [facility] Potassium Chloride (Klor-Con 10) 10 meq PO DAILY [facility] Senna/Docusate Sodium (Senokot S) 1 tab PO BID [facility] Last Admin: 10/21/18 21:00 Dose: 1 tab Sodium Chloride (Flush - Normal Saline) 10 ml IVF Q12HR [facility] Last Admin: 10/21/18 21:01 Dose: 10 ml Sodium Chloride (Flush - Normal Saline) 10 ml IVF PRN PRN PRN Reason: Saline Flush Spironolactone (Aldactone) 25 mg PO DAILY [facility]
[2018-10-22] MEDS: Enoxaparin Sodium 40 MG/0.4 ML SYRINGE SC SCH (10:30)
[2018-10-22] MEDS: Calcium Carbonate + Vit D 1 TAB PO SCH (10:31)
[2018-10-22] MEDS: Ferrous Sulfate 325 MG TAB PO SCH (10:31)
[2018-10-22] MEDS: Spironolactone 25 MG TAB PO SCH (10:31)
[2018-10-22] MEDS: Aspirin 325 mg Enteric Coated Tablet PO SCH (10:31)
[2018-10-22] MEDS: Polyethylene Glycol 3350 17 GM Packet PO SCH (10:32)
[2018-10-22] MEDS: Folic Acid 1 MG TAB PO SCH (10:32)
[2018-10-22] MEDS: Potassium Chloride 10 MEQ TAB PO SCH (10:32)
[2018-10-22] MEDS: Carvedilol 3.125 MG TAB PO SCH ×2 (10:32→21:10)
[2018-10-22] MEDS: Senokot S 8.6-50 MG TAB PO SCH ×2 (10:33→21:09)
[2018-10-22] MEDS: Cyanocobalamin (Vitamin B-12) 1,000 MCG TAB PO SCH (10:38)
[2018-10-22] MEDS: guaiFENesin ER 600 MG TAB PO SCH ×2 (10:43→21:09)
--- NOTE | 2018-10-22 12:29 | PQF ---
CLINICAL DOCUMENTATION IMPROVEMENT CLARIFICATION FORM: ICD-10 Updated PLEASE DO AN ADDENDUM TO THE PROGRESS NOTE WITH ANY DOCUMENTATION UPDATES OR ADDITIONS AND CARRY THROUGH TO DC SUMMARY. THANK YOU. DATE: 10/22/2018 ATTN: Dr. Cardona Please exercise your independent, professional judgment in responding to the clarification form. Clinical indicators are provided on the bottom of this form for your review Please check appropriate box(s): [x ] I (concur) with the Nursing Assessment findings as stated below. [ ] Pressure Ulcer: (Stage I: Erythema; Stage II: Partial thickness; Stage III : Full thickness; Stage IV: Necrosis to muscle/bone) [ ] Location: POA: [ ] Yes [ ] No[ ] Unable to determine Stage (I to IV): __(Left__Right__Bilateral__N/A__) [ ] Location: POA: [ ] Yes [ ] No[ ] Unable to determine Stage (I to IV): __(Left__Right__Bilateral__N/A__) [ ] No pressure ulcer diagnosis [ ] Deep tissue injury [ ] Other diagnosis [ ] Unable to determine In addition, please specify: Present on Admission (POA): [x ] Yes [ ] No [ ] Unable to determine For continuity of documentation, please document condition throughout progress notes and discharge summary. Thank You. CLINICAL INDICATORS - SIGNS / SYMPTOMS / LABS Nursing Observation Assessment 10/19: STG 1- SACRUM, Stage 2 - L inner posterior thigh, Nursing Assessment 10/20: L Posterior Medial Upper Thigh Pressure Ulcer. Stage II Middle Sacrococcygeal Pressure Ulcer. Stage I RISKS: H&P 10/19: PMH pertinent for chronic CHF with cardiomyopathy, chronic renal failure, dementia. HTN. TREATMENT: Skin interventions per Nursing protocol: Skin kept from excessive moisture. Turn pt q2 hr Pre-ulcer skin changes limited to persistent focal edema (Stage 1) Abrasion, blister, partial thickness skin loss involving epidermis and/or dermis (Stage 2) Full thickness skin loss involving damage or necrosis of SQ tissue. (Stage 3) Necrosis of soft tissue through to underlying muscle, tendon, or bone. (Stage 4) Purple or maroon discolored skin or blood filled blister Thank you, Mariluz (This form is maintained as a part of the permanent medical record) 2015 [employer] All Rights Reserved Mariluz Carranza RN, BSN [email or web address] Office: [phone] [facility]ERS[facility]
[2018-10-22] MEDS: cefTRIAXone\\ROCEPHIN 1 GM in Sodium Chloride 0.9% 100 ML IVPB SCH (14:18)
[2018-10-22] MEDS: Azithromycin 500 MG in Sodium Chloride 0.9% 250 ML 250 ML IVPB SCH (14:54)
[2018-10-22 15:03] VITALS: BMI 22.8
[2018-10-22] MEDS: Acetaminophen 325 MG TAB PO PRN (21:15)
[2018-10-23] MEDS: Furosemide 40 MG/4 ML VIAL SLOW IVP SCH (05:28)
[2018-10-23] MEDS: MEXILETINE HCL 200 MG PO SCH (05:33)
--- NOTE | 2018-10-23 09:47 | PDOC.PN ---
- Subjective Encounter Start Date: 10/23/18 Encounter Start Time: 07:10 Patient seen and examined. No new complaints. No overnight events - Objective Resuscitation Status - Order Detail: 10/19/18 13:56 Resuscitation Status Routine Resuscitation Status: DNAR: NO Resuscitation Discussed with: daughter Ani SULTANA Reviewed: Yes Vital Signs & Weight: Vital Signs (12 hours) Temp Pulse Resp BP Pulse Ox 10/23/18 07:39 94 L 10/23/18 07:36 86 16 10/23/18 03:03 98.2 F 76 18 98/55 L 94 L 10/22/18 23:42 82 93/50 L 10/22/18 22:10 91 18 92 L Weight Admit Weight 178 lb 9.6 oz Weight 170 lb 4.8 oz I&O: 10/22/18 10/23/18 10/24/18 06:59 06:59 06:59 Intake Total 1020 680 Balance 1020 680 Result Diagrams: 10/22/18 05:05 10/22/18 05:05 EKG Reviewed by me: Yes Phys Exam - Physical Examination Constitutional: NAD HEENT: PERRLA, moist MMs, sclera anicteric Neck: no JVD, supple Respiratory: no wheezing, no rales, no rhonchi Cardiovascular: RRR, no rub SM+ Gastrointestinal: soft, non-tender, no distention, positive bowel sounds Musculoskeletal: no edema, pulses present Neurological: non-focal Lymphatic: no nodes Psychiatric: normal affect Skin: no rash, normal turgor Dx/Plan (1) Acute on chronic combined systolic and diastolic ACC/AHA stage C congestive heart failure Code(s): I50.43 - ACUTE ON CHRONIC COMBINED SYSTOLIC AND DIASTOLIC HRT FAIL Status: Acute Comment: (2) Type [address] elevation Code(s): I21.A1 - MYOCARDIAL INFARCTION TYPE 2 Status: Acute (3) Alzheimer's dementia Code(s): G30.9 - ALZHEIMER'S DISEASE, UNSPECIFIED; F02.80 - DEMENTIA IN OTH DISEASES CLASSD ELSWHR W/O BEHAVRL DISTURB Status: Chronic (4) BPH (benign prostatic hyperplasia) Code(s): N40.0 - BENIGN PROSTATIC HYPERPLASIA WITHOUT LOWER URINRY TRACT SYMP Status: Chronic (5) CKD (chronic kidney disease) stage 3, GFR 30-59 ml/min Code(s): N18.3 - CHRONIC KIDNEY DISEASE, STAGE 3 (MODERATE) Status: Chronic Comment: stable (6) GERD (gastroesophageal reflux disease) Code(s): K21.9 - GASTRO-ESOPHAGEAL REFLUX DISEASE WITHOUT ESOPHAGITIS Status: Chronic (7) HTN (hypertension) Code(s): I10 - ESSENTIAL (PRIMARY) HYPERTENSION Status: Chronic Comment: controlled (8) Macrocytic anemia Code(s): D53.9 - NUTRITIONAL ANEMIA, UNSPECIFIED Status: Chronic (9) Osteoporosis Code(s): M81.0 - AGE-RELATED OSTEOPOROSIS W/O CURRENT PATHOLOGICAL FRACTURE Status: Chronic (10) Seizure disorder Code(s): G40.909 - EPILEPSY, UNSP, NOT INTRACTABLE, WITHOUT STATUS EPILEPTICUS Status: Chronic (11) Severe aortic stenosis by prior echocardiogram Code(s): I35.0 - NONRHEUMATIC AORTIC (VALVE) STENOSIS Status: Chronic - Plan cont current plan of care, continue antibiotics, social services director, respiratory therapy * medication reviewed as below * symptomatic treatment * change to po omnicef * see discharge heide. Review of Systems - Review of Systems ENT: negative: Ear Pain, Ear Discharge, Nose Pain, Nose Discharge, Nose Congestion, Mouth Pain, Mouth Swelling, Throat Pain, Throat Swelling, Other Respiratory: negative: Cough, Dry, Shortness of Breath, Hemoptysis, SOB with Excertion, Pleuritic Pain, Sputum, Wheezing Cardiovascular: negative: chest pain, palpitations, orthopnea, paroxysmal nocturnal dyspnea, edema, light headedness, other Gastrointestinal: negative: Nausea, Vomiting, Abdominal Pain, Diarrhea, Constipation, Melena, Hematochezia, Other Genitourinary: negative: Dysuria, Frequency, Incontinence, Hematuria, Retention , Other Musculoskeletal: negative: Neck Pain, Shoulder Pain, Arm Pain, Back Pain, Hand Pain, Leg Pain, Foot Pain, Other - Medications/Allergies Allergies/Adverse Reactions: Allergies Allergy/AdvReac Type Severity Reaction Status Date / Time melatonin Allergy Verified 10/19/18 18:32 Medications: Current Medications Acetaminophen (Tylenol) 650 mg PO Q4H PRN PRN Reason: Headache/Fever/Mild Pain (1-3) Last Admin: 10/22/18 21:15 Dose: 650 mg Albuterol Sulfate (Albuterol Sulfate) 1.25 mg NEB [id number] PRN PRN Reason: SOB &/or Wheezing Last Admin: 10/19/18 18:08 Dose: 1.25 mg Albuterol/Ipratropium (Duoneb) 3 ml NEB [id number] [facility] Last Admin: 10/23/18 07:36 Dose: 3 ml Aspirin (Ecotrin) 325 mg PO DAILY [facility] Last Admin: 10/22/18 10:31 Dose: 325 mg Calcium/Vitamin D (Caltrate 600 + Vit D) 1 tab PO DAILY [facility] Last Admin: 10/22/18 10:31 Dose: 1 tab Carvedilol (Coreg) 3.125 mg PO BID [facility] Last Admin: 10/22/18 21:10 Dose: 3.125 mg Cholecalciferol (Vitamin D3) 2,000 units PO DAILY [facility] Last Admin: 10/22/18 10:37 Dose: 2,000 units Cyanocobalamin (Vitamin B-12) 1,000 mcg PO DAILY [facility] Last Admin: 10/22/18 10:38 Dose: 1,000 mcg Enoxaparin Sodium (Lovenox) 40 mg SC 0900 [facility] Last Admin: 10/22/18 10:30 Dose: 40 mg Ferrous Sulfate (Feosol) 325 mg PO DAILY [facility] Last Admin: 10/22/18 10:31 Dose: 325 mg Folic Acid (Folvite) 1 mg PO DAILY [facility] Last Admin: 10/22/18 10:32 Dose: 1 mg Furosemide (Lasix) 40 mg SLOW IVP 0600,1400 [facility] Last Admin: 10/23/18 05:28 Dose: 40 mg Guaifenesin (Organ-I Nr) 400 mg PO Q4H PRN PRN Reason: Cough Guaifenesin (Mucinex) 600 mg PO Q12HR [facility] Last Admin: 10/22/18 21:09 Dose: 600 mg Azithromycin 500 mg/ Sodium (Chloride) 250 mls @ 250 mls/hr IVPB Q24HR [facility] Last Admin: 10/22/18 14:54 Dose: 250 mls Ceftriaxone Sodium 1 gm/ (Sodium Chloride) 100 mls @ 200 mls/hr IVPB Q24HR [facility] Last Admin: 10/22/18 14:18 Dose: 100 mls Ondansetron HCl (Zofran Odt) 4 mg PO Q6H PRN PRN Reason: Nausea/Vomiting Mexiletine Hcl [ Mexiletine Hcl] 200 Mg 1 each PO Q8HR [facility] Last Admin: 10/23/18 05:33 Dose: 1 each Phenytoin Sodium (Dilantin Er) 300 mg PO DAILY [facility] Last Admin: 10/22/18 10:30 Dose: 300 mg Polyethylene Glycol (Miralax) 17 gm PO DAILY [facility] Last Admin: 10/22/18 10:32 Dose: 17 gm Potassium Chloride (Klor-Con 10) 10 meq PO DAILY [facility] Last Admin: 10/22/18 10:32 Dose: 10 meq Senna/Docusate Sodium (Senokot S) 1 tab PO BID [facility] Last Admin: 10/22/18 21:09 Dose: 1 tab Sodium Chloride (Flush - Normal Saline) 10 ml IVF Q12HR [facility] Last Admin: 10/22/18 21:10 Dose: 10 ml Sodium Chloride (Flush - Normal Saline) 10 ml IVF PRN PRN PRN Reason: Saline Flush Spironolactone (Aldactone) 25 mg PO DAILY [facility] Last Admin: 10/22/18 10:31 Dose: 25 mg
[2018-10-23] MEDS: Spironolactone 25 MG TAB PO SCH (10:00)
[2018-10-23] MEDS: Cyanocobalamin (Vitamin B-12) 1,000 MCG TAB PO SCH (10:00)
[2018-10-23] MEDS: Carvedilol 3.125 MG TAB PO SCH (10:00)
[2018-10-23] MEDS: Folic Acid 1 MG TAB PO SCH (10:01)
[2018-10-23] MEDS: guaiFENesin ER 600 MG TAB PO SCH (10:01)
[2018-10-23] MEDS: Aspirin 325 mg Enteric Coated Tablet PO SCH (10:01)
[2018-10-23] MEDS: Ferrous Sulfate 325 MG TAB PO SCH (10:01)
[2018-10-23] MEDS: Calcium Carbonate + Vit D 1 TAB PO SCH (10:01)
[2018-10-23] MEDS: Senokot S 8.6-50 MG TAB PO SCH (10:01)
[2018-10-23] MEDS: Potassium Chloride 10 MEQ TAB PO SCH (10:01)
[2018-10-23] MEDS: Polyethylene Glycol 3350 17 GM Packet PO SCH (10:02)
[2018-10-23] MEDS: Enoxaparin Sodium 40 MG/0.4 ML SYRINGE SC SCH (10:02)
[2018-10-23] MEDS: Acetaminophen 325 MG TAB PO PRN (10:03)
--- NOTE | 2018-10-23 11:00 | DIS ---
DATE OF ADMISSION: 10/19/2018 DATE OF DISCHARGE: 10/23/2018 PRIMARY CARE PHYSICIAN: [facility] Call admission. DISCHARGE DISPOSITION: half-way home. PRIMARY DISCHARGE DIAGNOSES: Acute on chronic combined systolic and diastolic heart failure, stage C; health-care associated pneumonia due to Moraxella catarrhalis; hypokalemia; type [address] elevation; macrocytic anemia. SECONDARY DISCHARGE DIAGNOSES: Severe aortic stenosis, seizure disorder, osteoporosis, macrocytic anemia, hypertension, gastroesophageal reflux disease, CKD stage 3, benign enlargement of prostate, and Alzheimer's dementia. PRIMARY PROCEDURE/OPERATION: None. RADIOLOGICAL INVESTIGATION: Chest x-ray. SIGNIFICANT LABORATORY DATA: Hemoglobin 8.9. Creatinine 1.51, troponin 0.205, albumin 3.1. Urinalysis normal. Blood culture negative. Sputum culture grew Moraxella catarrhalis. Respiratory virus panel negative. DISCHARGE MEDICATIONS: 1. Mexiletine 200 mg p.o. q.8 hourly. 2. Tylenol 650 mg q.6 hourly p.r.n. 3. Ventolin nebulization b.i.d. 4. Aspirin 325 mg daily. 5. Calcium with vitamin D 1 tablet daily. 6. Coreg 3.125 mg b.i.d. 7. Vitamin D3 of 2000 units p.o. daily. 8. Ferrous sulfate 325 mg p.o. daily. 9. Dilantin 300 mg p.o. b.i.d. 10. MiraLAX 17 g p.o. daily. 11. Colace one tablet b.i.d. 12. Aldactone 25 mg p.o. daily. 13. Omnicef 300 mg p.o. b.i.d. for 7 days. 14. Mucinex 600 mg twice daily for 7 days. 15. Folic acid 1 mg p.o. daily. 16. Lasix 40 mg p.o. b.i.d. 17. Potassium chloride 10 mEq p.o. daily. 18. Florastor 250 mg p.o. daily. 19. Lisinopril 2.5 mg p.o. daily. CONTRAINDICATION: None. CODE STATUS: DNR. INPATIENT DROP CLIPPER: None. ALLERGIES: MELATONIN. DISCHARGE PLAN: Posthospital, the patient will be discharged to half-way home. Subsequently, the patient will follow up with primary care physician. The patient should get palliative care at detention. HOSPITAL COURSE: An 88-year-old male with above-mentioned medical problem, who has advanced cardiomyopathy as well as severe critical aortic stenosis, who was admitted by Dr. Powell. Please see his H and P for further detail. He lives at detention, and the patient was sent from detention for increasing shortness of breath and cough. He was found with pneumonia, which was health-care associated and culture grew Moraxella catarrhalis. He was also having a demand ischemia as well as [id number] [place], type 2, and he was also having acute on chronic CHF exacerbation, which was treated with Lasix. He has macrocytic anemia and that is why we started folic acid and vitamin B12 therapy. Rest of medications were continued as per previous. This patient will continue all his previous medications upon discharge. While in hospital, we gave him Rocephin and azithromycin as well as IV Lasix, and with that, the patient's condition significantly improved. The patient will continue to follow up with primary care physician and [facility]. 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 This patient should get comfort care at detention. The patient is seen and examined at bedside today. Please see my progress note from today for further detail. Job ID: [id number]
[2018-10-23 17:17] VITALS: BP 119/65; TEMP 97.9
== END 2018-10-23 15:30 | DRG 280 ==
LOC: ERS 09:15 → OBSVTOIN 15:35 → 2NO 15:35
PROVIDERS: ADMIT Internal Medicine; ATTEND Internal Medicine
DX: I13.0 Hypertensive heart and chronic kidney disease with heart failure and stage 1 through stage 4 chronic kidney disease, or unspecified chronic kidney disease (principal); I21.A1 Myocardial infarction type 2; I50.43 Acute on chronic combined systolic (congestive) and diastolic (congestive) heart failure; J15.6 Pneumonia due to other Gram-negative bacteria; J44.0 Chronic obstructive pulmonary disease with (acute) lower respiratory infection; Z66 Do not resuscitate; I42.9 Cardiomyopathy, unspecified; D63.1 Anemia in chronic kidney disease; G40.909 Epilepsy, unspecified, not intractable, without status epilepticus; N18.3 Chronic kidney disease, stage 3 (moderate); I35.0 Nonrheumatic aortic (valve) stenosis; G30.9 Alzheimer's disease, unspecified; F02.80 Dementia in other diseases classified elsewhere, unspecified severity, without behavioral disturbance, psychotic disturbance, mood disturbance, and anxiety; K21.9 Gastro-esophageal reflux disease without esophagitis; I25.10 Atherosclerotic heart disease of native coronary artery without angina pectoris; M81.0 Age-related osteoporosis without current pathological fracture; G47.00 Insomnia, unspecified; D53.9 Nutritional anemia, unspecified; L89.151 Pressure ulcer of sacral region, stage 1; N40.0 Benign prostatic hyperplasia without lower urinary tract symptoms; L89.892 Pressure ulcer of other site, stage 2; Z87.891 Personal history of nicotine dependence; Z79.899 Other long term (current) drug therapy; Z79.82 Long term (current) use of aspirin; J44.9 Chronic obstructive pulmonary disease, unspecified
CPT/HCPCS: 36415; 71045; 80048; 80053; 80185; 81003; 81015; 82550; 82553; 83605; 83880; 84484; 85025; 87040; 87070; 87205; 87633; 93005; 93798; 94640; 96374; J0456; J0696; J1650; J1940; J3480; J3490; J7050; J7620